=== PATIENT | male | born 1970 | race Caucasian/White ===

== ENCOUNTER 2016-09-12 07:23 | Inpatient (IN) | payer OTHER ==
[2016-09-12 08:00] LABS: Basophils % (Auto) 0.5 % (0.0-1.8); Eosinophils % (Auto) 0.6 % (0.0-4.3); Hematocrit 36.8 % (35.5-45.6); Hemoglobin 12.2 gm/dl (11.8-15.2); Mean Corpuscular HGB Conc 33 % (32-34); Mean Corpuscular Hemoglobin 33 pg (28-32); Mean Corpuscular Volume 100 fl (84-94); Platelet Count 255 K/mm3 (140-440); Red Blood Count 3.68 M/mm3 (3.65-5.03); Red Cell Distribution Width 16.2 % (13.2-15.2); White Blood Count 14.5 K/mm3 (4.5-11.0)
[2016-09-12 08:25] LABS: Blood Urea Nitrogen 15 mg/dL (9-20); Calcium 8.8 mg/dL (8.4-10.2); Carbon Dioxide 21 mmol/L (22-30); Chloride 93.8 mmol/L (98-107); Sodium 130 mmol/L (137-145)
[2016-09-12 08:31] LABS: Glucose 674 mg/dL (75-100)
[2016-09-12 08:37] LABS: Anion Gap 21 mmol/L; Potassium 5.7 mmol/L (3.6-5.0)
[2016-09-12] MEDS ORDERED: D50W (25GM) IV PRN ×3 (08:37→09:46)
[2016-09-12] MEDS ORDERED: MORPHINE IV ONE (08:57)
[2016-09-12] MEDS ORDERED: ZOSYN/NS 4.5GM/100ML 4.5 GM/100 ML VIAL IV ONE (08:58)
--- NOTE | 2016-09-12 08:59 | Emergency Department Report ---
HPI - General Chief Complaint: Skin/Abscess/Foreign Body Time Seen by Provider: 09/12/16 08:36 - HPI HPI: This is a 46-year-old male who presents to the emergency department with a three-day history of progressive worsening left foot pain and suspected infection. This occurred after the patient stepped on a nail about 4 days ago. It is red and warm to touch and he says that the bottom of the foot is whitish yellow with some discharge of pus. He is a diabetic, insulin-dependent , and says he has been compliant with his medications up until this morning. He has been taking ibuprofen for pain without any relief. He also was able to obtain some amoxicillin from a friend and has been taking 1-2 days worth of that antibiotics. He complains of a subjective fever but has not checked his temperature at home. He does not have a primary care doctor and eventually get some of his medications through his [facility]. No recent travel or sick contacts at home. ED Past Medical Hx - Past Medical History Hx Diabetes: Yes - Surgical History Past Surgical History?: Yes Additional Surgical History: abdominal surgery as a child - Social History Smoking Status: Former Smoker Substance Use Type: None - Medications Home Medications: Home Medications Medication Instructions Recorded Confirmed Last Taken Type No Known Home Medications [No 09/12/16 Unknown History Reported Home Medications] ED Review of Systems ROS: Stated complaint: PUNCTURE WOUND TO LEFT FOOT Other details as noted in HPI Comment: All other systems reviewed and negative Constitutional: chills, fever (subjective) Eyes: denies: eye pain, eye discharge, vision change ENT: denies: ear pain, throat pain Respiratory: denies: cough, shortness of breath, wheezing Cardiovascular: denies: chest pain, palpitations Gastrointestinal: denies: abdominal pain, nausea, diarrhea Genitourinary: denies: urgency, dysuria Musculoskeletal: joint swelling, arthralgia Skin: rash, change in color Neurological: denies: headache, weakness, paresthesias Physical Exam - Physical Exam Vital Signs: Vital Signs 09/12/16 09/12/16 09/12/16 07:32 08:48 08:53 Temperature 98.0 F 98.8 F Pulse Rate 107 H 98 H Respiratory 20 15 Rate Blood Pressure 140/95 Blood Pressure 142/77 [Left] O2 Sat by Pulse 100 100 100 Oximetry Physical Exam: GENERAL: The patient is well-developed well-nourished. HEENT: Normocephalic. Atraumatic. Extraocular motions are intact. Patient has moist mucous membranes. Pupils equal reactive to light bilaterally. NECK: Supple. Trachea is midline. CHEST/LUNGS: Clear to auscultation. There is no respiratory distress noted. HEART/CARDIOVASCULAR: Regular. There is no tachycardia. There is no gallop rub or murmur. ABDOMEN: Abdomen is soft, nontender. Patient has normal bowel sounds. There is no abdominal distention. SKIN: There is nonpitting swelling to the distal left lower extremity from just above the ankle through the foot and toes. This area is also erythematous and warm. To the distal plantar portion of the foot, there is some fluctuance concerning for an underlying abscess. NEURO: The patient is awake, alert, and oriented. The patient is cooperative. The patient has no focal neurologic deficits. The patient has normal speech. MUSCULOSKELETAL: There is tenderness to palpation to the left lower extremity from the mid tib-fib distally where the patient appears to have a cellulitis and plantar abscess. Pedal pulses +2 over 4 bilaterally. Cap refill less than 2 seconds. There is no limitation range of motion. ED Course Vital Signs 09/12/16 09/12/16 09/12/16 07:32 08:48 08:53 Temperature 98.0 F 98.8 F Pulse Rate 107 H 98 H Respiratory 20 15 Rate Blood Pressure 140/95 Blood Pressure 142/77 [Left] O2 Sat by Pulse 100 100 100 Oximetry ED Medical Decision Making - Lab Data Result diagrams: 09/12/16 07:49 09/12/16 12:26 - Radiology Data Radiology results: image reviewed interpreted by me: X-ray of the left foot shows some swelling of the soft tissue but no obvious fracture, dislocation or concern for osteomyelitis - Medical Decision Making 46-year-old male presents the emergency department with a three-day history of pain, redness and swelling to the left foot and ankle that appears to be a cellulitis and a plantar abscess. On top of that, the patient has very elevated blood sugar of being an insulin-dependent diabetic. It is most likely secondary to his infection that his diabetes uncontrolled. The blood sugar is close to 700. There is no sign of current acidosis but there is some elevation in the anion gap. The patient will be started on insulin drip. Because the patient allegedly stepped on a nail, he was given a tetanus vaccination. He will be cross covered with vancomycin and Zosyn to include pseudomonas coverage and will be admitted to the ICU secondary to his insulin drip. He has been accepted for admission by the hospitalist, Dr. Cali. - Differential Diagnosis cellulitis, osteomyelitis, DKA, HHNK, abscess Critical Care Time: No Critical care attestation.: If time is entered above; I have spent that time in minutes in the direct care of this critically ill patient, excluding procedure time. ED Disposition Clinical Impression: Cellulitis and abscess of foot, Hyperglycemic hyperosmolar nonketotic coma Disposition: OP ADMITTED IP TO THIS HOSP Is pt being admited?: Yes Condition: Stable Time of Disposition: 14:13
--- NOTE | 2016-09-12 09:10 | Admit Criteria Form ---
Admission Criteria Documentation: CELLULITIS Clinical Indications for Admission to Inpatient Care (Place 'X' for any and all applicable criteria): Admission is indicated for ANY ONE of the following(1)(2)(3)(4)(5): [ ]I. Limb-threatening infection [ X]II. High-risk comorbid condition as indicated by ANY ONE of the following: [ X]a) Uncontrolled diabetes (eg, HbA1c greater than 10% (0.1)) [ ]b) Cirrhosis [ ]c) Neutropenia [ ]d) Asplenia [ ]e) Immunosuppression [ ]f) Symptomatic heart failure [ ]III. Failure of outpatient therapy as indicated by ALL of the following: [ ]a) Progression or no improvement after adequate trial (minimum of 48 hours, with longer period for stable lower extremity infection) [ ]b) Adequate antibiotic regimen as indicated by use of ANY ONE of the following: [ ]i) First-generation cephalosporin (e.g., cephalexin) [ ]ii) Antistaphylococcal penicillin (e.g., dicloxacillin) [ ]iii) Penicillin-allergic patient regimen (clindamycin, extended-spectrum fluoroquinolone, or doxycycline) [ ]iv) Resistant organism (eg, methicillin-resistant Staphylococcus aureus) regimen (6) [ ]c) Outpatient intravenous therapy regimen is not appropriate due to ANY ONE of the following. (7)(8)(9)(10): [ ]i) It was tried and was not successful (eg, progression of infection). [ ]ii) It is not available or cannot be arranged in a clinically appropriate time frame (e.g., the next day). [ ]iii) Clinical presentation (eg, acuity of infection, rapidity of progression, confirmed or suspected bacteremia) is judged to require ALL of the following: [ ]1) Immediate initiation of intravenous therapy ( eg, cannot wait for next day) [ ]2) Intensity of patient monitoring and observation (eg, vital sign measurement, checks for infection progression) that cannot be provided at other than inpatient level of care [ ]IV. Mental status changes [ ]V. Bacteremia [ ]. Hemodynamic instability [ ]VII. Suspected necrotizing soft tissue infection (e.g., gas in tissue)(11)( 12) [ ]VIII. Orbital infection (13)(14) [ ]IX. Associated surgical procedure (e.g., abscess drainage, debridement) not amenable to outpatient, emergency department, or observation care [ ]X. Cutaneous gangrene [ ]XI. High fever (temperature greater than 39.5 degrees C (103.1 degrees F) (oral)) not responsive to outpatient, emergency department, or observation care therapy [ ]XIII. Inpatient admission required rather than observation care (Also use Cellulitis: Observation Care as appropriate) because of ANY ONE of the following : [ ]a) Periorbital or perineal infection that is severe or worsening [ ]b) Severe pain requiring acute inpatient management [ ]c) IV fluid to replace significant ongoing (e.g., for over 24 hours) losses (greater than 3L/m2 per day) [ ]d) Compartment syndrome monitoring (17) [ ]e) Strict or protective (eg, laminar flow) isolation [ ]f) Urgent debridement or skin grafting [ ]g) Bone or joint debridement [ ]h) Immediate inpatient surgery [ ]i) Other condition, treatment or monitoring requiring inpatient admission Extended stay beyond goal length of stay may be needed for (1)(18): [ ]a) Necrotizing soft tissue infection or fasciitis [ ]b) Gram-negative infection [ ]c) Methicillin-resistant Staphylococcal aureus (MRSA) infection [ ]d) Peripheral venous insufficiency with cellulitis [ ]e) Extensive edema [ ]f) Sepsis or continued Hemodynamic instability [ ]g) Continued high fever or mental status change [ ]h) Bacteremia [ ]i) Active serious comorbid conditions ( eg, heart failure, renal insufficiency) The original [email or web address] content created by [email or web address] has been revised. The portions of the content which have been revised are identified through the use of italic text or in bold, and [facility] has neither reviewed nor approved the modified material. All other unmodified content is copyright [facility] Please see references footnoted in the original [facility] [employer] edition 2016 Admission Criteria Met: Yes
[2016-09-12 09:17] LABS: Bilirubin,Urine NEG (Negative); Blood,Urine NEG (Negative); Ketones,Urine NEG (Negative); Leukocyte Esterase,Urine NEG (Negative); Mucus,Urine FEW /HPF; Nitrite,Urine NEG (Negative); Protein,Urine <15 mg/dL mg/dL (Negative); Urobilinogen,Urine < 2.0 mg/dL (<2.0)
[2016-09-12 09:22] LABS: Magnesium 1.8 mg/dL (1.7-2.3); Phosphorous 3.6 mg/dL (2.5-4.5)
[2016-09-12 09:23] LABS: Anion Gap 21 mmol/L; Blood Urea Nitrogen 15 mg/dL (9-20); Calcium 8.6 mg/dL (8.4-10.2); Carbon Dioxide 21 mmol/L (22-30); Chloride 92.7 mmol/L (98-107); Potassium 5.2 mmol/L (3.6-5.0); Sodium 129 mmol/L (137-145)
--- NOTE | 2016-09-12 09:31 | History and Physical Report ---
History of Present Illness Date of examination: 09/12/16 History of present illness: This is a 46-year-old male who presents to the emergency department with a three-day history of progressive worsening left foot pain and suspected infection. This occurred after the patient stepped on a nail about 4 days ago. It is red and warm to touch and he says that the bottom of the foot is whitish yellow with some discharge of pus. He is a diabetic, insulin-dependent , and says he has been compliant with his medications up until this morning. He has been taking ibuprofen for pain without any relief. He also was able to obtain some amoxicillin from a friend and has been taking 1-2 days worth of that antibiotics. He complains of a subjective fever but has not checked his temperature at home. He does not have a primary care doctor and eventually get some of his medications through his [facility]. No recent travel or sick contacts at home. Past History Past Medical History: diabetes Medications and Allergies Allergies Allergy/AdvReac Type Severity Reaction Status Date / Time No Known Allergies Allergy Verified 09/12/16 07:32 Home Medications Medication Instructions Recorded Confirmed Last Taken Type glipiZIDE [Glucotrol] 5 mg PO BID #60 tablet 10/11/13 Unknown Rx Active Meds: Active Medications Dextrose (D50w (25gm)) 0 ml IV PRN PRN PRN Reason: Hypoglycemia Insulin Human Regular 100 (units/ Sodium Chloride) 100 mls @ 5 mls/hr IV TITR JARRED; 5 UNITS/HR PRN Reason: Protocol Tetanus/Diphtheria Toxoids (Tenivac) 0.5 ml IM ONCE.ED ONE Stop: 09/12/16 10:01 Review of Systems Integumentary: redness, foot/leg ulcers Exam - Constitutional Vitals: Temp Pulse Resp BP Pulse Ox 98.8 F 98 H 15 142/77 100 09/12/16 08:53 09/12/16 08:53 09/12/16 08:53 09/12/16 08:53 09/12/16 08:53 General appearance: Present: mild distress - EENT Eyes: Present: PERRL, EOM intact ENT: hearing intact, clear oral mucosa - Neck Neck: Present: supple, normal ROM - Respiratory Respiratory effort: normal Respiratory: bilateral: CTA - Cardiovascular Rhythm: regular Heart Sounds: Present: S1 & S2 - Extremities Extremity abnormal: edema, erythema, pulses diminished, tenderness - Abdominal General gastrointestinal: Present: soft, non-tender, non-distended, normal bowel sounds - Musculoskeletal Musculoskeletal: strength equal bilaterally - Psychiatric Psychiatric: appropriate mood/affect, intact judgment & insight - Neurologic Neurologic: CNII-XII intact, moves all extremities Results - Labs CBC & Chem 7: 09/12/16 07:49 09/12/16 08:51 Labs: Laboratory Last Values WBC 14.5 K/mm3 (4.5-11.0) H 09/12/16 07:49 RBC 3.68 M/mm3 (3.65-5.03) 09/12/16 07:49 Hgb 12.2 gm/dl (11.8-15.2) 09/12/16 07:49 Hct 36.8 % (35.5-45.6) 09/12/16 07:49 MCV 100 fl (84-94) H 09/12/16 07:49 MCH 33 pg (28-32) H 09/12/16 07:49 MCHC 33 % (32-34) 09/12/16 07:49 RDW 16.2 % (13.2-15.2) H 09/12/16 07:49 Plt Count 255 K/mm3 (140-440) 09/12/16 07:49 Lymph % (Auto) 6.7 % (13.4-35.0) L 09/12/16 07:49 [place] % (Auto) 7.6 % (0.0-7.3) H 09/12/16 07:49 Eos % (Auto) 0.6 % (0.0-4.3) 09/12/16 07:49 Baso % (Auto) 0.5 % (0.0-1.8) 09/12/16 07:49 Lymph # 1.0 K/mm3 (1.2-5.4) L 09/12/16 07:49 [place] # 1.1 K/mm3 (0.0-0.8) H 09/12/16 07:49 Eos # 0.1 K/mm3 (0.0-0.4) 09/12/16 07:49 Baso # 0.1 K/mm3 (0.0-0.1) 09/12/16 07:49 Seg Neutrophils % 84.6 % (40.0-70.0) H 09/12/16 07:49 Seg Neutrophils # 12.3 K/mm3 (1.8-7.7) H 09/12/16 07:49 VBG pH 7.381 (7.320-7.420) 09/12/16 07:49 Sodium 129 mmol/L (137-145) L 09/12/16 08:51 Potassium 5.2 mmol/L (3.6-5.0) H 09/12/16 08:51 Chloride 92.7 mmol/L (98-107) L 09/12/16 08:51 Carbon Dioxide 21 mmol/L (22-30) L 09/12/16 08:51 Anion Gap 21 mmol/L 09/12/16 08:51 BUN 15 mg/dL (9-20) 09/12/16 08:51 Creatinine 0.6 mg/dL (0.8-1.5) L 09/12/16 08:51 Estimated GFR > 60 ml/min 09/12/16 08:51 BUN/Creatinine Ratio 25.00 % 09/12/16 08:51 Glucose 674 mg/dL (75-100) H* 09/12/16 07:49 POC Glucose > 500 (70-105) H 09/12/16 07:35 Lactic Acid 2.10 mmol/L (0.7-2.0) H* 09/12/16 07:49 Calcium 8.6 mg/dL (8.4-10.2) 09/12/16 08:51 Phosphorus 3.60 mg/dL (2.5-4.5) 09/12/16 08:51 Magnesium 1.80 mg/dL (1.7-2.3) 09/12/16 08:51 Urine Color Yellow (Yellow) 09/12/16 09:03 Urine Turbidity Clear (Clear) 09/12/16 09:03 Urine pH 6.0 (5.0-7.0) 09/12/16 09:03 Ur Specific [place] 1.028 (1.003-1.030) 09/12/16 09:03 Urine Protein <15 mg/dl mg/dL (Negative) 09/12/16 09:03 Urine Glucose (UA) >=500 mg/dL (Negative) 09/12/16 09:03 Urine Ketones Neg mg/dL (Negative) 09/12/16 09:03 Urine Blood Neg (Negative) 09/12/16 09:03 Urine Nitrite Neg (Negative) 09/12/16 09:03 Urine Bilirubin Neg (Negative) 09/12/16 09:03 Urine Urobilinogen < 2.0 mg/dL (<2.0) 09/12/16 09:03 Ur Leukocyte Esterase Neg (Negative) 09/12/16 09:03 Urine WBC (Auto) 1.0 /HPF (0.0-6.0) 09/12/16 09:03 Urine RBC (Auto) 4.0 /HPF (0.0-6.0) 09/12/16 09:03 U Epithel Cells (Auto) < 1.0 /HPF (0-13.0) 09/12/16 09:03 Urine Mucus Few /HPF 09/12/16 09:03 Assessment and Plan - Patient Problems (1) Cellulitis and abscess of foot Current Visit: Yes Status: Acute Plan to address problem: We will admit to the hospital. Start IV antibiotics. Follow blood cultures. Follow cultures. We'll get infectious disease consult (2) Hyperglycemic hyperosmolar nonketotic coma Current Visit: Yes Status: Acute Plan to address problem: Patient will be admitted to the intensive care unit and started on insulin drip. IV fluid hydration
[2016-09-12 09:35] LABS: Glucose 653 mg/dL (75-100)
[2016-09-12] MEDS ORDERED: ALUM-MAG HYDROX-SIMETH 200-200-20MG/5ML PO PRN (09:46)
[2016-09-12] MEDS ORDERED: DULCOLAX PR PRN (09:46)
[2016-09-12] MEDS ORDERED: NACL 0.9% 1000 ML 1,000 ML IV ONE (09:46)
[2016-09-12] MEDS ORDERED: MILK OF MAGNESIA PO PRN (09:46)
[2016-09-12] MEDS ORDERED: TENIVAC IM ONE (10:00)
[2016-09-12] MEDS ORDERED: LOVENOX SUB-Q SCH (10:00)
[2016-09-12] MEDS ORDERED: NovoLIN R 100 UNITS in NACL 0.9% 99 ML IV SCH ×2 (10:00)
[2016-09-12 10:51] LABS: Anion Gap 21 mmol/L; BUN/Creatinine Ratio 23.33; Blood Urea Nitrogen 14 mg/dL (9-20); Calcium 8.9 mg/dL (8.4-10.2); Carbon Dioxide 21 mmol/L (22-30); Chloride 95.2 mmol/L (98-107); Potassium 4.7 mmol/L (3.6-5.0); Sodium 132 mmol/L (137-145)
[2016-09-12 10:53] LABS: Glucose 596 mg/dL (75-100)
[2016-09-12 10:55] LABS: Magnesium 1.8 mg/dL (1.7-2.3); Phosphorous 3.3 mg/dL (2.5-4.5)
[2016-09-12] MEDS ORDERED: VANCOMYCIN/NS 1 GM/250 ML 1 GM/250 ML BAG IV SCH (11:00)
[2016-09-12] MEDS ORDERED: MORPHINE ONE (11:13)
[2016-09-12] MEDS ORDERED: VANCOMYCIN 1,250 MG in NACL 0.9% 250ML 250 ML IV ONE (12:00)
[2016-09-12] MEDS: LOVENOX SUB-Q SCH (12:57)
[2016-09-12 13:33] LABS: Anion Gap 22 mmol/L; Blood Urea Nitrogen 11 mg/dL (9-20); Calcium 8.5 mg/dL (8.4-10.2); Carbon Dioxide 18 mmol/L (22-30); Chloride 97.6 mmol/L (98-107); Glucose 417 mg/dL (75-100); Potassium 4.1 mmol/L (3.6-5.0); Sodium 133 mmol/L (137-145)
[2016-09-12] MEDS: ZOSYN/NS 4.5GM/100ML 4.5 GM/100 ML VIAL IV SCH ×2 (13:36→22:52)
[2016-09-12] MEDS: NACL 0.9% 1000 ML 1,000 ML IV SCH (14:55)
[2016-09-12] MEDS: D5W/0.45% NACL/KCL 20 MEQ 20 MEQ/1,000 ML BAG IV SCH (16:00)
[2016-09-12 17:16] LABS: Anion Gap 19 mmol/L; Blood Urea Nitrogen 9 mg/dL (9-20); Calcium 8.2 mg/dL (8.4-10.2); Calcium 8.3 mg/dL (8.4-10.2); Carbon Dioxide 19 mmol/L (22-30); Carbon Dioxide 20 mmol/L (22-30); Chloride 100.5 mmol/L (98-107); Chloride 102.5 mmol/L (98-107); Glucose 152 mg/dL (75-100); Glucose 153 mg/dL (75-100); Potassium 3.6 mmol/L (3.6-5.0); Potassium 3.7 mmol/L (3.6-5.0); Sodium 135 mmol/L (137-145); Sodium 138 mmol/L (137-145)
[2016-09-12 17:17] LABS: Anion Gap 18 mmol/L; Anion Gap 19 mmol/L; Blood Urea Nitrogen 9 mg/dL (9-20); Calcium 8.3 mg/dL (8.4-10.2); Carbon Dioxide 21 mmol/L (22-30); Chloride 102.1 mmol/L (98-107); Chloride 102.5 mmol/L (98-107); Glucose 152 mg/dL (75-100); Glucose 154 mg/dL (75-100); Potassium 3.7 mmol/L (3.6-5.0); Sodium 138 mmol/L (137-145)
[2016-09-13] MEDS: VANCOMYCIN/NS 1 GM/250 ML 1 GM/250 ML BAG IV SCH ×2 (00:15→12:30)
[2016-09-13] MEDS: MORPHINE IV PRN ×3 (00:57→14:34)
[2016-09-13] MEDS: ZOFRAN IV PRN ×2 (00:57→06:17)
[2016-09-13] MEDS: D5W/0.45% NACL/KCL 20 MEQ 20 MEQ/1,000 ML BAG IV SCH ×2 (00:59→09:00)
[2016-09-13 01:33] LABS: Anion Gap 19 mmol/L; Blood Urea Nitrogen 8 mg/dL (9-20); Carbon Dioxide 19 mmol/L (22-30); Chloride 99.5 mmol/L (98-107); Glucose 142 mg/dL (75-100); Potassium 3.7 mmol/L (3.6-5.0); Sodium 134 mmol/L (137-145)
[2016-09-13 05:56] LABS: Basophils % (Auto) 0.2 % (0.0-1.8); Eosinophils % (Auto) 1.5 % (0.0-4.3); Hematocrit 35.3 % (35.5-45.6); Hemoglobin 11.4 gm/dl (11.8-15.2); Mean Corpuscular HGB Conc 32 % (32-34); Mean Corpuscular Hemoglobin 33 pg (28-32); Mean Corpuscular Volume 100 fl (84-94); Platelet Count 266 K/mm3 (140-440); Red Blood Count 3.52 M/mm3 (3.65-5.03); White Blood Count 13.1 K/mm3 (4.5-11.0)
[2016-09-13 06:08] LABS: Anion Gap 18 mmol/L; Blood Urea Nitrogen 8 mg/dL (9-20); Carbon Dioxide 18 mmol/L (22-30); Chloride 102.2 mmol/L (98-107); Glucose 147 mg/dL (75-100); Potassium 4.1 mmol/L (3.6-5.0); Sodium 134 mmol/L (137-145)
[2016-09-13] MEDS: ZOSYN/NS 4.5GM/100ML 4.5 GM/100 ML VIAL IV SCH ×3 (06:31→22:35)
[2016-09-13] MEDS: LOVENOX SUB-Q SCH (11:00)
[2016-09-13] MEDS ORDERED: D50W (25GM) IV PRN (11:38)
[2016-09-13] MEDS ORDERED: FLUARIX QUAD 2016-2017(36 MOS+) IM ONE (12:00)
--- NOTE | 2016-09-13 13:42 | Progress Note ---
Assessment and Plan Assessment and plan: This is a 46-year-old male who presents to the emergency department with a three-day history of progressive worsening left foot pain and suspected infection. This occurred after the patient stepped on a nail about 8 days ago. It is red and warm to touch and he says that the bottom of the foot is whitish yellow with some discharge of pus. He is a diabetic, insulin-dependent , and says he has been compliant with his medications up until this morning. He has been taking ibuprofen for pain without any relief. He also was able to obtain some amoxicillin from a friend and has been taking 1-2 days worth of that antibiotics. He complains of a subjective fever but has not checked his temperature at home. He does not have a primary care doctor and eventually get some of his medications through his [facility]. No recent travel or sick contacts at home. - Patient Problems (1) Severe Sepsis secondary to diabetic foot infection, POSSIBLE GNR, continue abx, check repeat lactate, cultures reviewed no growth. (2)Cellulitis and abscess of foot Await x-ray of fluids. Continue IV antibiotics of vancomycin, Zosyn Follow blood cultures. Follow cultures. We'll get infectious disease consult. Obtain wound consult. Possibly will need incision and drainage, unfortunately we do not have podiatry will proceed with orthopedic surgery consult. (2) Hyperglycemic hyperosmolar nonketotic state Blood sugar improved. Transition to long-acting insulin and transferred to the medical surgical unit. 3. Metabolic acidosis: Improving, start patient on bicarbonate replacement. 4. Uncontrolled diabetes mellitus Start patient on sliding scale coverage, also long-acting insulin at nighttime. Accu-Cheks before meals and Daily at bedtime. Patient will need diabetic education prior to discharge. Diabetic diet. 5. DVT/GI prophy 6. Plan of care discussed in detail with patient via nursing staff counselor. History Interval history: Patient seen and examined, in no acute distress. No adverse event reported by nursing staff. Hospitalist Physical - Physical exam Narrative exam: VITAL SIGNS: Reviewed. GENERAL: The patient appeared well nourished and normally developed. Vital signs as documented. HEAD: No signs of head trauma. EYES: Pupils are equal. Extraocular motions intact. EARS: Hearing grossly intact. MOUTH: Oropharynx is normal. NECK: No adenopathy, no JVD. CHEST: Chest with clear breath sounds bilaterally. No wheezes, rales, or rhonchi. CARDIAC: Regular rate and rhythm. S1 and S2, without murmurs, gallops, or rubs. VASCULAR: Left foot Edema. Peripheral pulses normal and equal in all extremities. ABDOMEN: Soft, without detectable tenderness. No sign of distention. No rebound or guarding, and no masses palpated. Bowel Sounds normal. MUSCULOSKELETAL: Good range of motion of all major joints. Extremities without clubbing, cyanosis. left foot edema. NEUROLOGIC EXAM: Alert and oriented x 3. No focal sensory or strength deficits. Speech normal. Follows commands. PSYCHIATRIC: Mood normal. SKIN: Left foot with 2 puncture wound true and true, edema with erythema. Capillary refill less than 2 seconds. - Constitutional Vitals: Temp Pulse Resp BP Pulse Ox 98 F 100 H 14 155/94 100 09/13/16 12:00 09/13/16 12:00 09/13/16 12:00 09/13/16 12:00 09/13/16 12:00 General appearance: Present: mild distress Results - Labs CBC & Chem 7: 09/13/16 04:38 09/13/16 04:31 Labs: Laboratory Last Values WBC 13.1 K/mm3 (4.5-11.0) H 09/13/16 04:38 RBC 3.52 M/mm3 (3.65-5.03) L 09/13/16 04:38 Hgb 11.4 gm/dl (11.8-15.2) L 09/13/16 04:38 Hct 35.3 % (35.5-45.6) L 09/13/16 04:38 MCV 100 fl (84-94) H 09/13/16 04:38 MCH 33 pg (28-32) H 09/13/16 04:38 MCHC 32 % (32-34) 09/13/16 04:38 RDW 16.0 % (13.2-15.2) H 09/13/16 04:38 Plt Count 266 K/mm3 (140-440) 09/13/16 04:38 Lymph % (Auto) 14.2 % (13.4-35.0) 09/13/16 04:38 [place] % (Auto) 9.6 % (0.0-7.3) H 09/13/16 04:38 Eos % (Auto) 1.5 % (0.0-4.3) 09/13/16 04:38 Baso % (Auto) 0.2 % (0.0-1.8) 09/13/16 04:38 Lymph # 1.8 K/mm3 (1.2-5.4) 09/13/16 04:38 [place] # 1.2 K/mm3 (0.0-0.8) H 09/13/16 04:38 Eos # 0.2 K/mm3 (0.0-0.4) 09/13/16 04:38 Baso # 0.0 K/mm3 (0.0-0.1) 09/13/16 04:38 Seg Neutrophils % 74.5 % (40.0-70.0) H 09/13/16 04:38 Seg Neutrophils # 9.7 K/mm3 (1.8-7.7) H 09/13/16 04:38 VBG pH 7.381 (7.320-7.420) 09/12/16 07:49 Sodium 134 mmol/L (137-145) L 09/13/16 04:31 Potassium 4.1 mmol/L (3.6-5.0) 09/13/16 04:31 Chloride 102.2 mmol/L (98-107) 09/13/16 04:31 Carbon Dioxide 18 mmol/L (22-30) L 09/13/16 04:31 Anion Gap 18 mmol/L 09/13/16 04:31 BUN 8 mg/dL (9-20) L 09/13/16 04:31 Creatinine 0.5 mg/dL (0.8-1.5) L 09/13/16 04:31 Estimated GFR > 60 ml/min 09/13/16 04:31 BUN/Creatinine Ratio 16.00 % 09/13/16 04:31 Glucose 147 mg/dL (75-100) H 09/13/16 04:31 POC Glucose 167 (70-105) H 09/13/16 09:56 Hemoglobin A1c 15.1 % (4-6) H 09/12/16 10:18 Lactic Acid 2.10 mmol/L (0.7-2.0) H* 09/12/16 07:49 Calcium 8.0 mg/dL (8.4-10.2) L 09/13/16 04:31 Phosphorus 3.30 mg/dL (2.5-4.5) 09/12/16 10:18 Magnesium 1.80 mg/dL (1.7-2.3) 09/12/16 10:18 Triglycerides 146 mg/dL (2-149) 09/12/16 10:18 Cholesterol 124 mg/dL (50-199) 09/12/16 10:18 LDL Cholesterol Direct 62 mg/dL (50-130) 09/12/16 10:18 HDL Cholesterol 33 mg/dL (40-59) L 09/12/16 10:18 Cholesterol/HDL Ratio 3.75 % 09/12/16 10:18 Urine Color Yellow (Yellow) 09/12/16 09:03 Urine Turbidity Clear (Clear) 09/12/16 09:03 Urine pH 6.0 (5.0-7.0) 09/12/16 09:03 Ur Specific [place] 1.028 (1.003-1.030) 09/12/16 09:03 Urine Protein <15 mg/dl mg/dL (Negative) 09/12/16 09:03 Urine Glucose (UA) >=500 mg/dL (Negative) 09/12/16 09:03 Urine Ketones Neg mg/dL (Negative) 09/12/16 09:03 Urine Blood Neg (Negative) 09/12/16 09:03 Urine Nitrite Neg (Negative) 09/12/16 09:03 Urine Bilirubin Neg (Negative) 09/12/16 09:03 Urine Urobilinogen < 2.0 mg/dL (<2.0) 09/12/16 09:03 Ur Leukocyte Esterase Neg (Negative) 09/12/16 09:03 Urine WBC (Auto) 1.0 /HPF (0.0-6.0) 09/12/16 09:03 Urine RBC (Auto) 4.0 /HPF (0.0-6.0) 09/12/16 09:03 U Epithel Cells (Auto) < 1.0 /HPF (0-13.0) 09/12/16 09:03 Urine Mucus Few /HPF 09/12/16 09:03
[2016-09-13] MEDS: NACL 0.9% 1000 ML 1,000 ML IV SCH ×2 (14:21→22:35)
[2016-09-13] MEDS ORDERED: VANCOMYCIN PHARMACY TO DOSE IV SCH (14:37)
[2016-09-13 14:44] LABS: Anion Gap 19 mmol/L; Blood Urea Nitrogen 8 mg/dL (9-20); Calcium 8.2 mg/dL (8.4-10.2); Carbon Dioxide 18 mmol/L (22-30); Glucose 305 mg/dL (75-100); Potassium 4.3 mmol/L (3.6-5.0); Sodium 134 mmol/L (137-145)
[2016-09-13] MEDS: NOVOLOG SUB-Q SCH ×2 (18:12→22:34)
[2016-09-13] MEDS ORDERED: LEVEMIR SUB-Q SCH (22:00)
[2016-09-14] MEDS: VANCOMYCIN/NS 1 GM/250 ML 1 GM/250 ML BAG IV SCH ×3 (01:19→16:53)
[2016-09-14] MEDS: ZOSYN/NS 4.5GM/100ML 4.5 GM/100 ML VIAL IV SCH ×3 (05:37→22:15)
[2016-09-14] MEDS: MORPHINE IV PRN ×2 (05:39→16:54)
[2016-09-14 05:48] LABS: Hematocrit 32.3 % (35.5-45.6); Hemoglobin 11.1 gm/dl (11.8-15.2); Mean Corpuscular HGB Conc 34 % (32-34); Mean Corpuscular Hemoglobin 34 pg (28-32); Mean Corpuscular Volume 98 fl (84-94); Platelet Count 282 K/mm3 (140-440); Red Blood Count 3.29 M/mm3 (3.65-5.03); Red Cell Distribution Width 15.4 % (13.2-15.2); White Blood Count 10.9 K/mm3 (4.5-11.0)
[2016-09-14 06:03] LABS: Anion Gap 17 mmol/L; Blood Urea Nitrogen 12 mg/dL (9-20); Calcium 7.8 mg/dL (8.4-10.2); Carbon Dioxide 21 mmol/L (22-30); Chloride 98.6 mmol/L (98-107); Glucose 306 mg/dL (75-100); Potassium 3.8 mmol/L (3.6-5.0); Sodium 133 mmol/L (137-145)
--- NOTE | 2016-09-14 08:15 | Progress Note ---
Assessment and Plan Assessment and plan: This is a 46-year-old male who presents to the emergency department with a three-day history of progressive worsening left foot pain and suspected infection. This occurred after the patient stepped on a nail about 8 days ago. It is red and warm to touch and he says that the bottom of the foot is whitish yellow with some discharge of pus. He is a diabetic, insulin-dependent , and says he has been compliant with his medications up until this morning. He has been taking ibuprofen for pain without any relief. He also was able to obtain some amoxicillin from a friend and has been taking 1-2 days worth of that antibiotics. He complains of a subjective fever but has not checked his temperature at home. He does not have a primary care doctor and eventually get some of his medications through his [facility]. No recent travel or sick contacts at home. - Patient Problems (1) Severe Sepsis now afebrile secondary to diabetic foot infection, POSSIBLE GNR, continue abx , repeat lactate is normal, cultures reviewed no growth. (2)Cellulitis and abscess of foot Await x-ray of fluids. Continue IV antibiotics of vancomycin, Zosyn Follow blood cultures. Follow cultures. We'll get infectious disease consult. Obtain wound consult. Possibly will need incision and drainage, unfortunately we do not have podiatry will proceed with orthopedic surgery consult. Awaiting imaging of the foot. (3) Hyperglycemic hyperosmolar nonketotic state Blood sugar improved. Patient states he has not taken insulin for a while due to lack of funds. But was only on Insulin. Will start on NPH 70/30 at 18 units BID with sliding scale. Needs diabetic education, will obtain NUTRITION CONSULT. I have educated patient on need to be complaint with medications, including 4. Metabolic acidosis: Improving, 5. Uncontrolled diabetes mellitus Start patient on sliding scale coverage, also long-acting insulin at nighttime. Accu-Cheks before meals and Daily at bedtime. Patient will need diabetic education prior to discharge. Diabetic diet. will switch to NPH 70/30 NOTED ABOVE, ALSO WILL ADD LOW DOSE ACEI FOR RENAL PROTECTION. I have advised patient to have a repeat renal function test in a week from discharge, due to ACEI addition. also yearly podiatry and opthalmology exams. 5. DVT/GI prophy 7. Plan of care discussed in detail with patient via nursing staff assistant. History Interval history: Patient seen and examined, in no acute distress. He reports bullae formation in the top of his foot. Denies any fever No adverse event reported by nursing staff. Hospitalist Physical - Physical exam Narrative exam: VITAL SIGNS: Reviewed. GENERAL: The patient appeared well nourished and normally developed. Vital signs as documented. HEAD: No signs of head trauma. EYES: Pupils are equal. Extraocular motions intact. EARS: Hearing grossly intact. MOUTH: Oropharynx is normal. NECK: No adenopathy, no JVD. CHEST: Chest with clear breath sounds bilaterally. No wheezes, rales, or rhonchi. CARDIAC: Regular rate and rhythm. S1 and S2, without murmurs, gallops, or rubs. VASCULAR: Left foot Edema. Peripheral pulses normal and equal in all extremities. ABDOMEN: Soft, without detectable tenderness. No sign of distention. No rebound or guarding, and no masses palpated. Bowel Sounds normal. MUSCULOSKELETAL: Good range of motion of all major joints. Extremities without clubbing, cyanosis. left foot edema. NEUROLOGIC EXAM: Alert and oriented x 3. No focal sensory or strength deficits. Speech normal. Follows commands. PSYCHIATRIC: Mood normal. SKIN: Left foot with 2 puncture wound true and true, edema with erythema. Edema and subcutaneous blister formation on the dorsum of the foot.. - Constitutional Vitals: Temp Pulse Resp BP Pulse Ox 99 F 84 20 162/90 98 09/13/16 22:43 09/14/16 00:00 09/14/16 05:39 09/13/16 22:43 09/14/16 00:00 General appearance: Present: mild distress Results - Labs CBC & Chem 7: 09/14/16 04:34 09/14/16 04:34 Labs: Laboratory Last Values WBC 10.9 K/mm3 (4.5-11.0) 09/14/16 04:34 RBC 3.29 M/mm3 (3.65-5.03) L 09/14/16 04:34 Hgb 11.1 gm/dl (11.8-15.2) L 09/14/16 04:34 Hct 32.3 % (35.5-45.6) L 09/14/16 04:34 MCV 98 fl (84-94) H 09/14/16 04:34 MCH 34 pg (28-32) H 09/14/16 04:34 MCHC 34 % (32-34) 09/14/16 04:34 RDW 15.4 % (13.2-15.2) H 09/14/16 04:34 Plt Count 282 K/mm3 (140-440) 09/14/16 04:34 Lymph % (Auto) 14.2 % (13.4-35.0) 09/13/16 04:38 Boyle % (Auto) 9.6 % (0.0-7.3) H 09/13/16 04:38 Eos % (Auto) 1.5 % (0.0-4.3) 09/13/16 04:38 Baso % (Auto) 0.2 % (0.0-1.8) 09/13/16 04:38 Lymph # 1.8 K/mm3 (1.2-5.4) 09/13/16 04:38 Boyle # 1.2 K/mm3 (0.0-0.8) H 09/13/16 04:38 Eos # 0.2 K/mm3 (0.0-0.4) 09/13/16 04:38 Baso # 0.0 K/mm3 (0.0-0.1) 09/13/16 04:38 Seg Neutrophils % 74.5 % (40.0-70.0) H 09/13/16 04:38 Seg Neutrophils # 9.7 K/mm3 (1.8-7.7) H 09/13/16 04:38 VBG pH 7.381 (7.320-7.420) 09/12/16 07:49 Sodium 133 mmol/L (137-145) L 09/14/16 04:34 Potassium 3.8 mmol/L (3.6-5.0) 09/14/16 04:34 Chloride 98.6 mmol/L (98-107) 09/14/16 04:34 Carbon Dioxide 21 mmol/L (22-30) L 09/14/16 04:34 Anion Gap 17 mmol/L 09/14/16 04:34 BUN 12 mg/dL (9-20) 09/14/16 04:34 Creatinine 0.5 mg/dL (0.8-1.5) L 09/14/16 04:34 Estimated GFR > 60 ml/min 09/14/16 04:34 BUN/Creatinine Ratio 24.00 % 09/14/16 04:34 Glucose 306 mg/dL (75-100) H 09/14/16 04:34 POC Glucose 350 (70-105) H 09/14/16 06:19 Hemoglobin A1c 15.1 % (4-6) H 09/12/16 10:18 Lactic Acid 1.50 mmol/L (0.7-2.0) 09/13/16 14:38 Calcium 7.8 mg/dL (8.4-10.2) L 09/14/16 04:34 Phosphorus 3.30 mg/dL (2.5-4.5) 09/12/16 10:18 Magnesium 1.80 mg/dL (1.7-2.3) 09/12/16 10:18 Triglycerides 146 mg/dL (2-149) 09/12/16 10:18 Cholesterol 124 mg/dL (50-199) 09/12/16 10:18 LDL Cholesterol Direct 62 mg/dL (50-130) 09/12/16 10:18 HDL Cholesterol 33 mg/dL (40-59) L 09/12/16 10:18 Cholesterol/HDL Ratio 3.75 % 09/12/16 10:18 Urine Color Yellow (Yellow) 09/12/16 09:03 Urine Turbidity Clear (Clear) 09/12/16 09:03 Urine pH 6.0 (5.0-7.0) 09/12/16 09:03 Ur Specific [place] 1.028 (1.003-1.030) 09/12/16 09:03 Urine Protein <15 mg/dl mg/dL (Negative) 09/12/16 09:03 Urine Glucose (UA) >=500 mg/dL (Negative) 09/12/16 09:03 Urine Ketones Neg mg/dL (Negative) 09/12/16 09:03 Urine Blood Neg (Negative) 09/12/16 09:03 Urine Nitrite Neg (Negative) 09/12/16 09:03 Urine Bilirubin Neg (Negative) 09/12/16 09:03 Urine Urobilinogen < 2.0 mg/dL (<2.0) 09/12/16 09:03 Ur Leukocyte Esterase Neg (Negative) 09/12/16 09:03 Urine WBC (Auto) 1.0 /HPF (0.0-6.0) 09/12/16 09:03 Urine RBC (Auto) 4.0 /HPF (0.0-6.0) 09/12/16 09:03 U Epithel Cells (Auto) < 1.0 /HPF (0-13.0) 09/12/16 09:03 Urine Mucus Few /HPF 09/12/16 09:03
[2016-09-14] MEDS: NOVOLOG SUB-Q SCH ×4 (08:32→22:24)
[2016-09-14] MEDS: ZESTRIL PO SCH (09:50)
[2016-09-14] MEDS: LOVENOX SUB-Q SCH (09:50)
[2016-09-14] MEDS: NACL 0.9% 1000 ML 1,000 ML IV SCH (16:51)
[2016-09-15] MEDS: VANCOMYCIN/NS 1 GM/250 ML 1 GM/250 ML BAG IV SCH ×3 (00:45→17:31)
[2016-09-15] MEDS: ZOSYN/NS 4.5GM/100ML 4.5 GM/100 ML VIAL IV SCH ×3 (06:38→22:22)
[2016-09-15 08:09] LABS: Hematocrit 32.3 % (35.5-45.6); Mean Corpuscular HGB Conc 34 % (32-34); Mean Corpuscular Hemoglobin 33 pg (28-32); Mean Corpuscular Volume 98 fl (84-94); Platelet Count 299 K/mm3 (140-440); Red Blood Count 3.31 M/mm3 (3.65-5.03); Red Cell Distribution Width 15.5 % (13.2-15.2); White Blood Count 11.2 K/mm3 (4.5-11.0)
[2016-09-15 08:18] LABS: Anion Gap 19 mmol/L; Blood Urea Nitrogen 8 mg/dL (9-20); Calcium 8.1 mg/dL (8.4-10.2); Carbon Dioxide 22 mmol/L (22-30); Chloride 101.5 mmol/L (98-107); Glucose 103 mg/dL (75-100); Potassium 3.3 mmol/L (3.6-5.0); Sodium 139 mmol/L (137-145)
--- NOTE | 2016-09-15 09:20 | Progress Note ---
Assessment and Plan Assessment and plan: This is a 46-year-old male who presents to the emergency department with a three-day history of progressive worsening left foot pain and suspected infection. This occurred after the patient stepped on a nail about 8 days ago. It is red and warm to touch and he says that the bottom of the foot is whitish yellow with some discharge of pus. He is a diabetic, insulin-dependent , and says he has been compliant with his medications up until this morning. He has been taking ibuprofen for pain without any relief. He also was able to obtain some amoxicillin from a friend and has been taking 1-2 days worth of that antibiotics. He complains of a subjective fever but has not checked his temperature at home. He does not have a primary care doctor and eventually get some of his medications through his [facility]. No recent travel or sick contacts at home. - Patient Problems Severe Sepsis now afebrile secondary to diabetic foot infection, , continue abx, repeat lactate is normal, cultures reviewed no growth. Cellulitis and abscess of foot xray of left foot shows possible punctate foreign body, cw IV abx, ID input appreciated, ortho input appreciated, to OR tomorrow morning, await surgical cultures. \ Hyperglycemic hyperosmolar nonketotic state Blood sugar improved. Patient states he has not taken insulin for a while due to lack of funds. But was only on Insulin. Will start on NPH 70/30 at 18 units BID with sliding scale. Needs diabetic education, will obtain NUTRITION CONSULT. I have educated patient on need to be complaint with medications, including . Metabolic acidosis: resolved with rx of HHNK . Uncontrolled diabetes mellitus Start patient on sliding scale coverage, also long-acting insulin at nighttime. Accu-Cheks before meals and Daily at bedtime. Patient will need diabetic education prior to discharge. Diabetic diet. will switch to NPH 70/30 NOTED ABOVE, ALSO WILL ADD LOW DOSE ACEI FOR RENAL PROTECTION. I have advised patient to have a repeat renal function test in a week from discharge, due to ACEI addition. also yearly podiatry and opthalmology exams. Hypokalemia repleted . Plan of care discussed in detail with patient via public health staff nurse. History Interval history: left foot pain is improved, achy in nature, /, fevers have now resolved, foot is still red and swollen Hospitalist Physical - Physical exam Narrative exam: VITAL SIGNS: Reviewed. GENERAL: The patient appeared well nourished and normally developed. Vital signs as documented. HEAD: No signs of head trauma. EYES: Pupils are equal. Extraocular motions intact. EARS: Hearing grossly intact. MOUTH: Oropharynx is normal. NECK: No adenopathy, no JVD. CHEST: Chest with clear breath sounds bilaterally. No wheezes, rales, or rhonchi. CARDIAC: Regular rate and rhythm. S1 and S2, without murmurs, gallops, or rubs. VASCULAR: Left foot Edema. Peripheral pulses normal and equal in all extremities. ABDOMEN: Soft, without detectable tenderness. No sign of distention. No rebound or guarding, and no masses palpated. Bowel Sounds normal. MUSCULOSKELETAL: Good range of motion of all major joints. Extremities without clubbing, cyanosis. left foot edema. NEUROLOGIC EXAM: Alert and oriented x 3. No focal sensory or strength deficits. Speech normal. Follows commands. PSYCHIATRIC: Mood normal. SKIN: left foot is swollen and erythematous, purlent drainage between 1st and 2nd toe, tender, no surrounding induration - Constitutional Vitals: Temp Pulse Resp BP Pulse Ox 98.1 F 69 15 138/81 98 09/15/16 07:15 09/15/16 07:15 09/15/16 07:15 09/15/16 07:15 09/15/16 07:15 General appearance: Present: mild distress Results - Labs CBC & Chem 7: 09/15/16 07:40 09/15/16 07:40 Labs: Laboratory Last Values WBC 11.2 K/mm3 (4.5-11.0) H 09/15/16 07:40 RBC 3.31 M/mm3 (3.65-5.03) L 09/15/16 07:40 Hgb 11.0 gm/dl (11.8-15.2) L 09/15/16 07:40 Hct 32.3 % (35.5-45.6) L 09/15/16 07:40 MCV 98 fl (84-94) H 09/15/16 07:40 MCH 33 pg (28-32) H 09/15/16 07:40 MCHC 34 % (32-34) 09/15/16 07:40 RDW 15.5 % (13.2-15.2) H 09/15/16 07:40 Plt Count 299 K/mm3 (140-440) 09/15/16 07:40 Lymph % (Auto) 14.2 % (13.4-35.0) 09/13/16 04:38 Terrell % (Auto) 9.6 % (0.0-7.3) H 09/13/16 04:38 Eos % (Auto) 1.5 % (0.0-4.3) 09/13/16 04:38 Baso % (Auto) 0.2 % (0.0-1.8) 09/13/16 04:38 Lymph # 1.8 K/mm3 (1.2-5.4) 09/13/16 04:38 Terrell # 1.2 K/mm3 (0.0-0.8) H 09/13/16 04:38 Eos # 0.2 K/mm3 (0.0-0.4) 09/13/16 04:38 Baso # 0.0 K/mm3 (0.0-0.1) 09/13/16 04:38 Seg Neutrophils % 74.5 % (40.0-70.0) H 09/13/16 04:38 Seg Neutrophils # 9.7 K/mm3 (1.8-7.7) H 09/13/16 04:38 VBG pH 7.381 (7.320-7.420) 09/12/16 07:49 Sodium 139 mmol/L (137-145) 09/15/16 07:40 Potassium 3.3 mmol/L (3.6-5.0) L 09/15/16 07:40 Chloride 101.5 mmol/L (98-107) 09/15/16 07:40 Carbon Dioxide 22 mmol/L (22-30) 09/15/16 07:40 Anion Gap 19 mmol/L 09/15/16 07:40 BUN 8 mg/dL (9-20) L 09/15/16 07:40 Creatinine 0.5 mg/dL (0.8-1.5) L 09/15/16 07:40 Estimated GFR > 60 ml/min 09/15/16 07:40 BUN/Creatinine Ratio 16.00 % 09/15/16 07:40 Glucose 103 mg/dL (75-100) H 09/15/16 07:40 POC Glucose 128 (70-105) H 09/15/16 06:17 Hemoglobin A1c 15.1 % (4-6) H 09/12/16 10:18 Lactic Acid 1.50 mmol/L (0.7-2.0) 09/13/16 14:38 Calcium 8.1 mg/dL (8.4-10.2) L 09/15/16 07:40 Phosphorus 3.30 mg/dL (2.5-4.5) 09/12/16 10:18 Magnesium 1.80 mg/dL (1.7-2.3) 09/12/16 10:18 Triglycerides 146 mg/dL (2-149) 09/12/16 10:18 Cholesterol 124 mg/dL (50-199) 09/12/16 10:18 LDL Cholesterol Direct 62 mg/dL (50-130) 09/12/16 10:18 HDL Cholesterol 33 mg/dL (40-59) L 09/12/16 10:18 Cholesterol/HDL Ratio 3.75 % 09/12/16 10:18 Urine Color Yellow (Yellow) 09/12/16 09:03 Urine Turbidity Clear (Clear) 09/12/16 09:03 Urine pH 6.0 (5.0-7.0) 09/12/16 09:03 Ur Specific [place]ander 1.028 (1.003-1.030) 09/12/16 09:03 Urine Protein <15 mg/dl mg/dL (Negative) 09/12/16 09:03 Urine Glucose (UA) >=500 mg/dL (Negative) 09/12/16 09:03 Urine Ketones Neg mg/dL (Negative) 09/12/16 09:03 Urine Blood Neg (Negative) 09/12/16 09:03 Urine Nitrite Neg (Negative) 09/12/16 09:03 Urine Bilirubin Neg (Negative) 09/12/16 09:03 Urine Urobilinogen < 2.0 mg/dL (<2.0) 09/12/16 09:03 Ur Leukocyte Esterase Neg (Negative) 09/12/16 09:03 Urine WBC (Auto) 1.0 /HPF (0.0-6.0) 09/12/16 09:03 Urine RBC (Auto) 4.0 /HPF (0.0-6.0) 09/12/16 09:03 U Epithel Cells (Auto) < 1.0 /HPF (0-13.0) 09/12/16 09:03 Urine Mucus Few /HPF 09/12/16 09:03 Vancomycin Trough 4.5 ug/mL (5.0-20.0) L 09/14/16 11:06
[2016-09-15] MEDS: ZESTRIL PO SCH (09:41)
[2016-09-15] MEDS ORDERED: K-DUR PO ONE (09:42)
[2016-09-15] MEDS: LOVENOX SUB-Q SCH (09:42)
[2016-09-15] MEDS: NOVOLOG SUB-Q SCH ×4 (09:42→22:26)
--- NOTE | 2016-09-15 09:50 | XRay Report ---
LEFT FOOT, 2 VIEWS History: Injury to left foot, foreign body. Findings: This examination is just presented to me for interpretation. There is diffuse soft tissue swelling of the distal foot. No acute osseous injury or joint pathology is identified. There are diffuse vascular calcifications suggesting diabetes or peripheral vascular disease. A punctate radiodensity is identified in the plantar soft tissues just beneath the skin on the lateral view only. This appears to be in the vicinity of the first or second toe. This may represent a tiny foreign body. Please correlate with the patient and image. Impression: Soft tissue swelling of the distal foot. Questionable punctate soft tissue foreign body as described above. No acute bony findings.
--- NOTE | 2016-09-15 10:58 | Consultation ---
History of Present Illness - Reason for Consult Consult date: 09/15/16 - History of Present Illness Mr. Nascimento is a 46-year-old man with known DM2 who presented for evaluation of his left foot after stepping accidentally on a nail 2 weeks ago. He says it bled "mucho" and developed swelling, redness, pain with chills and fever over several days. Plain film imaging showed a possible retained foreign body. There was seropurulent drainage from the puncture site. He is empirically on Vancomycin and Zosyn. ID is consulted for further antibiotic management. Past History Past Medical History: diabetes (uncontrolled) Medications and Allergies Allergies Allergy/AdvReac Type Severity Reaction Status Date / Time No Known Allergies Allergy Verified 09/12/16 07:32 Home Medications Medication Instructions Recorded Confirmed Last Taken Type No Known Home Medications [No 09/12/16 09/12/16 Unknown History Reported Home Medications] Active Meds: Active Medications Al Hydrox/Mg Hydrox/Simethicone (Alum-Mag Hydrox-Simeth 098-664-69ht/5ml) 30 ml PO Q4H PRN PRN Reason: Indigestion Bisacodyl (Dulcolax) 10 mg [place] QDAY PRN PRN Reason: constipation unrelieved by MOM Dextrose (D50w (25gm)) 0 ml IV PRN PRN PRN Reason: Hypoglycemia Dextrose (D50w (25gm)) 50 ml IV PRN PRN PRN Reason: Hypoglycemia Enoxaparin Sodium (Lovenox) 40 mg SUB-Q QDAY@1000 [facility] Last Admin: 09/15/16 09:42 Dose: 40 mg Sodium Chloride (Nacl 0.9% 1000 Ml) 1,000 mls @ 150 mls/hr IV DIRECT [facility] Last Admin: 09/14/16 16:51 Dose: 150 mls/hr Piperacillin Sod/Tazobactam Sod (Zosyn/Ns 4.5gm/100ml) 4.5 gm in 100 mls @ 200 mls/hr IV Q8HR [facility] PRN Reason: Protocol Last Admin: 09/15/16 06:38 Dose: 200 mls/hr Vancomycin HCl (Vancomycin/Ns 1 Gm/250 Ml) 1 gm in 250 mls @ 166.667 mls/hr IV Q8H [facility] Last Admin: 09/15/16 09:41 Dose: 166.667 mls/hr Insulin Aspart (Novolog) 0 units SUB-Q ACHS [facility] PRN Reason: Protocol Last Admin: 09/15/16 09:42 Dose: Not Given Insulin Human Isoph/Insulin Regular (Novolin 70/30) 18 unit SUB-Q BIDDIAB [facility] Last Admin: 09/15/16 09:42 Dose: 18 unit Lisinopril (Zestril) 5 mg PO QDAY [facility] Last Admin: 09/15/16 09:41 Dose: 5 mg Magnesium Hydroxide (Milk Of Magnesia) 30 ml PO Q4H PRN PRN Reason: Constipation Morphine Sulfate (Morphine) 2 mg IV Q4H PRN PRN Reason: Pain, Moderate (4-6) Last Admin: 09/14/16 16:54 Dose: 2 mg Ondansetron HCl (Zofran) 4 mg IV Q8H PRN PRN Reason: N/V unrelieved by Reglan Last Admin: 09/13/16 06:17 Dose: 4 mg Vancomycin HCl (Vancomycin Pharmacy To Dose) 1 each IV PKCONSULT [facility] PRN Reason: Protocol Review of Systems All systems: negative Constitutional: fever, chills Cardiovascular: no chest pain Respiratory: no cough Gastrointestinal: no nausea, no vomiting, no diarrhea Integumentary: no rash, no pruritis Physical Examination - Constitutional Vitals: Vital Signs Temp Pulse Resp BP Pulse Ox 98.1 F 69 15 138/81 98 09/15/16 07:15 09/15/16 07:15 09/15/16 07:15 09/15/16 07:15 09/15/16 07:15 Temperature -Last 24 Hours Temperature 98.1 F Temperature 99.7 F Temperature 99.2 F General appearance: Present: no acute distress (eating lunch) - Respiratory Respiratory effort: normal Respiratory: bilateral: CTA - Cardiovascular Rhythm: regular - Extremities Extremity abnormal: other (left foot edema with open laceration/ puncture wound in webspace between 1st and 2nd toes, purulent output, dorsum of foot erythematous with slightly increased warmth, no crepitus, DP pulse is normal) - Integumentary Integumentary: Absent: rash - Psychiatric Psychiatric: appropriate mood/affect Results - Labs CBC & Chem 7: 09/15/16 07:40 09/15/16 07:40 Labs: Abnormal lab results 09/14/16 09/14/16 09/14/16 Range/Units 11:06 11:40 16:31 WBC (4.5-11.0) K/mm3 RBC (3.65-5.03) M/mm3 Hgb (11.8-15.2) gm/dl Hct (35.5-45.6) % MCV (84-94) fl MCH (28-32) pg RDW (13.2-15.2) % Potassium (3.6-5.0) mmol/L BUN (9-20) mg/dL Creatinine (0.8-1.5) mg/dL Glucose (75-100) mg/dL POC Glucose 374 H 154 H (70-105) Calcium (8.4-10.2) mg/dL Vancomycin Trough 4.5 L (5.0-20.0) ug/mL 09/14/16 09/15/16 09/15/16 Range/Units 21:29 06:17 07:40 WBC 11.2 H (4.5-11.0) K/mm3 RBC 3.31 L (3.65-5.03) M/mm3 Hgb 11.0 L (11.8-15.2) gm/dl Hct 32.3 L (35.5-45.6) % MCV 98 H (84-94) fl MCH 33 H (28-32) pg RDW 15.5 H (13.2-15.2) % Potassium (3.6-5.0) mmol/L BUN (9-20) mg/dL Creatinine (0.8-1.5) mg/dL Glucose (75-100) mg/dL POC Glucose 173 H 128 H (70-105) Calcium (8.4-10.2) mg/dL Vancomycin Trough (5.0-20.0) ug/mL 09/15/16 Range/Units 07:40 WBC (4.5-11.0) K/mm3 RBC (3.65-5.03) M/mm3 Hgb (11.8-15.2) gm/dl Hct (35.5-45.6) % MCV (84-94) fl MCH (28-32) pg RDW (13.2-15.2) % Potassium 3.3 L (3.6-5.0) mmol/L BUN 8 L (9-20) mg/dL Creatinine 0.5 L (0.8-1.5) mg/dL Glucose 103 H (75-100) mg/dL POC Glucose (70-105) Calcium 8.1 L (8.4-10.2) mg/dL Vancomycin Trough (5.0-20.0) ug/mL Microbiology 09/12/16 07:49 Peripheral/Venous Blood Culture - Preliminary NO GROWTH AFTER 72 HOURS 09/12/16 08:51 Peripheral/Venous Blood Culture - Preliminary NO GROWTH AFTER 48 HOURS Assessment and Plan - Patient Problems (1) Cellulitis and abscess of foot Current Visit: Yes Status: Acute Plan to address problem: 1. Culture drainage from foot. 2. Continue empiric antimicrobials. Appreciate PK assistance with Vancomycin dosing. Recent trough subtherapeutic. 3. Consider MRI left foot +/- surgical assessment to retrieve foreign body.
[2016-09-15] MEDS: MORPHINE IV PRN (11:53)
[2016-09-15] MEDS: NACL 0.9% 1000 ML 1,000 ML IV SCH (14:05)
--- NOTE | 2016-09-15 14:20 | Consultation ---
History of Present Illness - HPI Consult date: 09/15/16 Consult reason: joint pain History of present illness: 46-year-old male who complains of pain swelling and drainage from the left forefoot patient states he stepped on a nail 1 week prior to presenting to our emergency room. Patient has a history of diabetes for several years. Asked to evaluate need for debridement and irrigation left foot Past History Past Medical History: diabetes (uncontrolled) Medications and Allergies Allergies Allergy/AdvReac Type Severity Reaction Status Date / Time No Known Allergies Allergy Verified 09/12/16 07:32 Home Medications Medication Instructions Recorded Confirmed Last Taken Type No Known Home Medications [No 09/12/16 09/12/16 Unknown History Reported Home Medications] Active Meds: Active Medications Al Hydrox/Mg Hydrox/Simethicone (Alum-Mag Hydrox-Simeth [id number]/5ml) 30 ml PO Q4H PRN PRN Reason: Indigestion Bisacodyl (Dulcolax) 10 mg [place] QDAY PRN PRN Reason: constipation unrelieved by MOM Dextrose (D50w (25gm)) 0 ml IV PRN PRN PRN Reason: Hypoglycemia Dextrose (D50w (25gm)) 50 ml IV PRN PRN PRN Reason: Hypoglycemia Enoxaparin Sodium (Lovenox) 40 mg SUB-Q QDAY@1000 [facility] Last Admin: 09/15/16 09:42 Dose: 40 mg Sodium Chloride (Nacl 0.9% 1000 Ml) 1,000 mls @ 150 mls/hr IV DIRECT [facility] Last Admin: 09/15/16 14:05 Dose: 150 mls/hr Piperacillin Sod/Tazobactam Sod (Zosyn/Ns 4.5gm/100ml) 4.5 gm in 100 mls @ 200 mls/hr IV Q8HR [facility] PRN Reason: Protocol Last Admin: 09/15/16 14:04 Dose: 200 mls/hr Vancomycin HCl (Vancomycin/Ns 1 Gm/250 Ml) 1 gm in 250 mls @ 166.667 mls/hr IV Q8H [facility] Last Admin: 09/15/16 09:41 Dose: 166.667 mls/hr Insulin Aspart (Novolog) 0 units SUB-Q ACHS [facility] PRN Reason: Protocol Last Admin: 09/15/16 14:06 Dose: 8 units Insulin Human Isoph/Insulin Regular (Novolin 70/30) 18 unit SUB-Q BIDDIAB [facility] Last Admin: 09/15/16 09:42 Dose: 18 unit Lisinopril (Zestril) 5 mg PO QDAY [facility] Last Admin: 09/15/16 09:41 Dose: 5 mg Magnesium Hydroxide (Milk Of Magnesia) 30 ml PO Q4H PRN PRN Reason: Constipation Morphine Sulfate (Morphine) 2 mg IV Q4H PRN PRN Reason: Pain, Moderate (4-6) Last Admin: 09/15/16 11:53 Dose: 2 mg Ondansetron HCl (Zofran) 4 mg IV Q8H PRN PRN Reason: N/V unrelieved by Reglan Last Admin: 09/13/16 06:17 Dose: 4 mg Vancomycin HCl (Vancomycin Pharmacy To Dose) 1 each IV PKCONSULT [facility] PRN Reason: Protocol Physical Examination - Physical exam Narrative exam: Significant orthopedic examination reveals moderate swelling with drainage from the first webspace there is some overlying erythema to the dorsum. The skin is warm to touch pulses intact capillary refill sluggish Eyes: PERRL ENT: Positive: clear oral mucosa Respiratory effort: normal Respiratory: bilateral: CTA Rhythm: regular Heart Sounds: Positive: S1 & S2 General gastrointestinal: Positive: soft, non-tender, non-distended, normal bowel sounds Integumentary: clear, warm, dry Neurologic: Positive: CNII-XII intact, moves all extremities, gait normal. Negative: focal deficits Assessment and Plan Infection left forefoot with a history of diabetes one will want to rule out arterial insufficiency prior to debridement and irrigation. We will go ahead and get a arterial Doppler study today and scheduled the patient for surgery tomorrow.
[2016-09-16] MEDS: VANCOMYCIN/NS 1 GM/250 ML 1 GM/250 ML BAG IV SCH ×3 (00:48→16:00)
[2016-09-16] MEDS: NACL 0.9% 1000 ML 1,000 ML IV SCH ×2 (04:11→12:05)
[2016-09-16] MEDS: ZOSYN/NS 4.5GM/100ML 4.5 GM/100 ML VIAL IV SCH ×3 (05:45→21:55)
[2016-09-16] MEDS: NOVOLOG SUB-Q SCH ×4 (08:15→21:56)
--- NOTE | 2016-09-16 08:46 | Progress Note ---
Assessment and Plan Assessment and plan: This is a 46-year-old male who presents to the emergency department with a three-day history of progressive worsening left foot pain and suspected infection. This occurred after the patient stepped on a nail about 8 days ago. It is red and warm to touch and he says that the bottom of the foot is whitish yellow with some discharge of pus. He is a diabetic, insulin-dependent , and says he has been compliant with his medications up until this morning. He has been taking ibuprofen for pain without any relief. He also was able to obtain some amoxicillin from a friend and has been taking 1-2 days worth of that antibiotics. He complains of a subjective fever but has not checked his temperature at home. He does not have a primary care doctor and eventually get some of his medications through his taoism. No recent travel or sick contacts at home. - Patient Problems Severe Sepsis now afebrile secondary to diabetic foot infection, , continue abx, repeat lactate is normal, cultures reviewed no growth. Cellulitis and abscess of foot xray of left foot shows possible punctate foreign body, cw IV abx, ID input appreciated, ortho input appreciated, to OR today, await surgical cultures. Hyperglycemic hyperosmolar nonketotic state Blood sugar improved. Patient states he has not taken insulin for a while due to lack of funds. But was only on Insulin. continue on NPH 70/30 at 18 units BID with sliding scale. received diabetic education, and NUTRITION CONSULT. I have educated patient on need to be complaint with medications . Metabolic acidosis: resolved with rx of HHNK . Uncontrolled diabetes mellitus continue insulins, DM diet. I have advised patient to have a repeat renal function test in a week from discharge, due to ACEI addition. also yearly podiatry and opthalmology exams. Hypokalemia repleted . Plan of care discussed in detail with patient via staff home therapy rn. History Interval history: left foot pain is improved, achy in nature, 3/10, fevers have now resolved, foot is still red and swollen Hospitalist Physical - Physical exam Narrative exam: VITAL SIGNS: Reviewed. GENERAL: The patient appeared well nourished and normally developed. Vital signs as documented. HEAD: No signs of head trauma. EYES: Pupils are equal. Extraocular motions intact. EARS: Hearing grossly intact. MOUTH: Oropharynx is normal. NECK: No adenopathy, no JVD. CHEST: Chest with clear breath sounds bilaterally. No wheezes, rales, or rhonchi. CARDIAC: Regular rate and rhythm. S1 and S2, without murmurs, gallops, or rubs. VASCULAR: Left foot Edema. Peripheral pulses normal and equal in all extremities. ABDOMEN: Soft, without detectable tenderness. No sign of distention. No rebound or guarding, and no masses palpated. Bowel Sounds normal. MUSCULOSKELETAL: Good range of motion of all major joints. Extremities without clubbing, cyanosis. left foot edema. NEUROLOGIC EXAM: Alert and oriented x 3. No focal sensory or strength deficits. Speech normal. Follows commands. PSYCHIATRIC: Mood normal. SKIN: left foot is swollen and erythematous, purlent drainage between 1st and 2nd toe, tender, no surrounding induration - Constitutional Vitals: Temp Pulse Resp BP Pulse Ox 99.0 F 80 20 130/77 95 09/16/16 00:00 09/16/16 00:00 09/16/16 08:00 09/16/16 00:00 09/16/16 00:00 General appearance: Present: mild distress Results - Labs CBC & Chem 7: 09/15/16 07:40 09/15/16 07:40 Labs: Laboratory Last Values WBC 11.2 K/mm3 (4.5-11.0) H 09/15/16 07:40 RBC 3.31 M/mm3 (3.65-5.03) L 09/15/16 07:40 Hgb 11.0 gm/dl (11.8-15.2) L 09/15/16 07:40 Hct 32.3 % (35.5-45.6) L 09/15/16 07:40 MCV 98 fl (84-94) H 09/15/16 07:40 MCH 33 pg (28-32) H 09/15/16 07:40 MCHC 34 % (32-34) 09/15/16 07:40 RDW 15.5 % (13.2-15.2) H 09/15/16 07:40 Plt Count 299 K/mm3 (140-440) 09/15/16 07:40 Lymph % (Auto) 14.2 % (13.4-35.0) 09/13/16 04:38 [place] % (Auto) 9.6 % (0.0-7.3) H 09/13/16 04:38 Eos % (Auto) 1.5 % (0.0-4.3) 09/13/16 04:38 Baso % (Auto) 0.2 % (0.0-1.8) 09/13/16 04:38 Lymph # 1.8 K/mm3 (1.2-5.4) 09/13/16 04:38 [place] # 1.2 K/mm3 (0.0-0.8) H 09/13/16 04:38 Eos # 0.2 K/mm3 (0.0-0.4) 09/13/16 04:38 Baso # 0.0 K/mm3 (0.0-0.1) 09/13/16 04:38 Seg Neutrophils % 74.5 % (40.0-70.0) H 09/13/16 04:38 Seg Neutrophils # 9.7 K/mm3 (1.8-7.7) H 09/13/16 04:38 VBG pH 7.381 (7.320-7.420) 09/12/16 07:49 Sodium 139 mmol/L (137-145) 09/15/16 07:40 Potassium 3.3 mmol/L (3.6-5.0) L 09/15/16 07:40 Chloride 101.5 mmol/L (98-107) 09/15/16 07:40 Carbon Dioxide 22 mmol/L (22-30) 09/15/16 07:40 Anion Gap 19 mmol/L 09/15/16 07:40 BUN 8 mg/dL (9-20) L 09/15/16 07:40 Creatinine 0.5 mg/dL (0.8-1.5) L 09/15/16 07:40 Estimated GFR > 60 ml/min 09/15/16 07:40 BUN/Creatinine Ratio 16.00 % 09/15/16 07:40 Glucose 103 mg/dL (75-100) H 09/15/16 07:40 POC Glucose 285 (70-105) H 09/16/16 06:14 Hemoglobin A1c 15.1 % (4-6) H 09/12/16 10:18 Lactic Acid 1.50 mmol/L (0.7-2.0) 09/13/16 14:38 Calcium 8.1 mg/dL (8.4-10.2) L 09/15/16 07:40 Phosphorus 3.30 mg/dL (2.5-4.5) 09/12/16 10:18 Magnesium 1.80 mg/dL (1.7-2.3) 09/12/16 10:18 Triglycerides 146 mg/dL (2-149) 09/12/16 10:18 Cholesterol 124 mg/dL (50-199) 09/12/16 10:18 LDL Cholesterol Direct 62 mg/dL (50-130) 09/12/16 10:18 HDL Cholesterol 33 mg/dL (40-59) L 09/12/16 10:18 Cholesterol/HDL Ratio 3.75 % 09/12/16 10:18 Urine Color Yellow (Yellow) 09/12/16 09:03 Urine Turbidity Clear (Clear) 09/12/16 09:03 Urine pH 6.0 (5.0-7.0) 09/12/16 09:03 Ur Specific [place] 1.028 (1.003-1.030) 09/12/16 09:03 Urine Protein <15 mg/dl mg/dL (Negative) 09/12/16 09:03 Urine Glucose (UA) >=500 mg/dL (Negative) 09/12/16 09:03 Urine Ketones Neg mg/dL (Negative) 09/12/16 09:03 Urine Blood Neg (Negative) 09/12/16 09:03 Urine Nitrite Neg (Negative) 09/12/16 09:03 Urine Bilirubin Neg (Negative) 09/12/16 09:03 Urine Urobilinogen < 2.0 mg/dL (<2.0) 09/12/16 09:03 Ur Leukocyte Esterase Neg (Negative) 09/12/16 09:03 Urine WBC (Auto) 1.0 /HPF (0.0-6.0) 09/12/16 09:03 Urine RBC (Auto) 4.0 /HPF (0.0-6.0) 09/12/16 09:03 U Epithel Cells (Auto) < 1.0 /HPF (0-13.0) 09/12/16 09:03 Urine Mucus Few /HPF 09/12/16 09:03 Vancomycin Trough 4.5 ug/mL (5.0-20.0) L 09/14/16 11:06
[2016-09-16] MEDS: LOVENOX SUB-Q SCH (10:00)
[2016-09-16] MEDS: ZESTRIL PO SCH (10:00)
[2016-09-16] MEDS ORDERED: XYLOCAINE MPF 2% ONE (11:34)
[2016-09-16] MEDS ORDERED: DIPRIVAN 10 MG/ML IV ONE (11:34)
[2016-09-16] MEDS ORDERED: SUBLIMAZE ONE (11:34)
--- NOTE | 2016-09-16 11:55 | Anesthesia Day of Surgery ---
Anesthesia Day of Surgery - Day of Surgery Patient Examined: Yes Patient H&P Reviewed: Yes Patient is NPO: Yes
--- NOTE | 2016-09-16 11:58 | Anesthesia Consultation ---
Anesthesia Consult and Med Hx Date of service: 09/16/16 - Airway Anesthetic Teeth Evaluation: Poor ROM Head & Neck: Adequate Mental/Hyoid Distance: Adequate Mallampati Class: Class II Intubation Access Assessment: Probably Good - Pulmonary Exam CTA: Yes - Cardiac Exam Cardiac Exam: RRR - Pre-Operative Health Status ASA Pre-Surgery Classification: ASA3 Proposed Anesthetic Plan: General - Pulmonary Hx Smoking: Yes Hx Asthma: No COPD: No Hx Pneumonia: No - Cardiovascular System Hx Hypertension: Yes (on on med, dx couple months ago) Hx Heart Attack/AMI: No - Central Nervous System Hx Seizures: No CVA: No - Endocrine Hx Renal Disease: No Hx End Stage Renal Disease: No Hx Insulin Dependent Diabetes: Yes (uncontrolled) - Other Systems Hx Alcohol Use: Yes (heavy drinker, quit 2 months ago) Hx Substance Use: Yes (methamphetamine, quit 5 months) Hx Cancer: No - Additional Comments Anesthesia Medical History Comments: NAC
[2016-09-16] MEDS ORDERED: VERSED IV NR (12:00)
[2016-09-16] MEDS ORDERED: PEPCID PO NR (12:00)
[2016-09-16] MEDS ORDERED: ePHEDrine SULFATE ONE (12:51)
[2016-09-16] MEDS ORDERED: ZOFRAN ONE (12:57)
[2016-09-16] MEDS ORDERED: NACL 0.9% IR ONE (13:00)
[2016-09-16] MEDS ORDERED: MARCAINE 0.5% INFILTRATI ONE (13:00)
[2016-09-16] MEDS ORDERED: MARCAINE 0.5% 30 ML INFILTRATI ONE (13:06)
[2016-09-16] MEDS ORDERED: MORPHINE IV PRN (13:34)
--- NOTE | 2016-09-16 13:43 | Procedure Note ---
Date of procedure: 09/16/16 Pre-op diagnosis: infected left forefoot Post-op diagnosis: same Procedure: Incision and drainage left forefoot Indications The 46-year-old male who stepped on a nail approximately 1 week prior patient has a history of diabetes came in complaining of increasing pain and drainage Procedure Patient was brought to the OR and placed in the OR table in supine position following induction and ablation by anesthesia the patient's left lower extremity was prepped and draped in the usual sterile manner timeout procedure was done to identify the proper or site. The patient was noted to have 2 small punctate lesions on the lateral surface of his forefoot beneath the first metatarsal. There was some pus noted from this area there is also a communication dorsally at the first webspace and this area was incised there was some necrotic tissue seen as was debrided next the wound was copiously irrigated and was packed with iodoform gauze routine postoperative dressings were applied patient tolerated procedure complications Anesthesia: GETA Surgeon: RONALD GÓMEZ Estimated blood loss: minimal Pathology: list Specimen disposition: to lab (deep cultures left forefoot) Condition: stable Disposition: PACU
[2016-09-16] MEDS ORDERED: NORMODYNE IV ONE (13:49)
[2016-09-16] MEDS ORDERED: DILAUDID IV PRN (13:50)
[2016-09-16] MEDS ORDERED: NORMODYNE IV PRN (13:50)
--- NOTE | 2016-09-16 13:50 | Post Anesthesia Evaluation ---
- Post Anesthesia Evaluation Patient Participated: Yes Airway Patent: Yes Stable Respiratory Function: Yes Nausea/Vomiting: No Temp > 96.8F: Yes Pain Manageable: Yes Adequeate Hydration: Yes Anesthesia Complications: No Block Receding Appropriately: Not Applicable Patient on Ventilator: No
[2016-09-16] MEDS ORDERED: SODIUM CHLORIDE FLUSH SYRINGE 10 ML IV NR (14:00)
[2016-09-16] MEDS: MORPHINE IV PRN (17:58)
[2016-09-17] MEDS: VANCOMYCIN/NS 1 GM/250 ML 1 GM/250 ML BAG IV SCH ×2 (00:30→08:46)
[2016-09-17] MEDS: ZOSYN/NS 4.5GM/100ML 4.5 GM/100 ML VIAL IV SCH ×3 (07:07→21:28)
[2016-09-17] MEDS: MORPHINE IV PRN ×2 (07:07→17:57)
--- NOTE | 2016-09-17 08:18 | Progress Note ---
Assessment and Plan Assessment and plan: This is a 46-year-old male who presents to the emergency department with a three-day history of progressive worsening left foot pain and suspected infection. This occurred after the patient stepped on a nail about 8 days ago. It is red and warm to touch and he says that the bottom of the foot is whitish yellow with some discharge of pus. He is a diabetic, insulin-dependent , and says he has been compliant with his medications up until this morning. He has been taking ibuprofen for pain without any relief. He also was able to obtain some amoxicillin from a friend and has been taking 1-2 days worth of that antibiotics. He complains of a subjective fever but has not checked his temperature at home. He does not have a primary care doctor and eventually get some of his medications through his oriental orthodox. No recent travel or sick contacts at home. 09/16/16 Status post incision and drainage and debridement of necrotic tissue to left forefoot - Patient Problems Severe Sepsis now afebrile secondary to diabetic foot infection, , continue abx, repeat lactate is normal, cultures reviewed no growth. improving Cellulitis and abscess of foot , cw IV abx, ID input appreciated, ortho input appreciated, status post I&D 09/16 , await surgical cultures. Hyperglycemic hyperosmolar nonketotic state/Uncontrolled diabetes mellitus Glucose still uncontrolled, increase 70/30 dose, continue SSI -continue insulins, DM diet. I have advised patient to have a repeat renal function test in a week from discharge, due to ACEI addition. also yearly podiatry and opthalmology exams. . Metabolic acidosis: resolved with rx of HHNK . Uncontrolled HTN will increase lisinopril dose today Hypokalemia repleted . Plan of care discussed in detail with patient via staff electronic warfare officer. History Interval history: left foot pain is improved, achy in nature, 2/10, fevers have now resolved, foot is still red and swollen Hospitalist Physical - Physical exam Narrative exam: VITAL SIGNS: Reviewed. GENERAL: The patient appeared well nourished and normally developed. Vital signs as documented. HEAD: No signs of head trauma. EYES: Pupils are equal. Extraocular motions intact. EARS: Hearing grossly intact. MOUTH: Oropharynx is normal. NECK: No adenopathy, no JVD. CHEST: Chest with clear breath sounds bilaterally. No wheezes, rales, or rhonchi. CARDIAC: Regular rate and rhythm. S1 and S2, without murmurs, gallops, or rubs. VASCULAR: Left foot Edema. good pulses throught ABDOMEN: Soft, without detectable tenderness. No sign of distention. No rebound or guarding, and no masses palpated. Bowel Sounds normal. MUSCULOSKELETAL: Good range of motion of all major joints. Extremities without clubbing, cyanosis. left foot edema, covered in dressing, dressing not removed NEUROLOGIC EXAM: Alert and oriented x 3. No focal sensory or strength deficits. Speech normal. Follows commands. PSYCHIATRIC: Mood normal. SKIN: left foot is swollen and erythematous, covered in dressing, dressing was not removed - Constitutional Vitals: Temp Pulse Resp BP Pulse Ox 98.9 F 80 20 161/85 98 09/16/16 23:56 09/16/16 23:56 09/17/16 07:07 09/16/16 23:56 09/16/16 23:56 General appearance: Present: mild distress Results - Labs CBC & Chem 7: 09/15/16 07:40 09/15/16 07:40 Labs: Laboratory Last Values WBC 11.2 K/mm3 (4.5-11.0) H 09/15/16 07:40 RBC 3.31 M/mm3 (3.65-5.03) L 09/15/16 07:40 Hgb 11.0 gm/dl (11.8-15.2) L 09/15/16 07:40 Hct 32.3 % (35.5-45.6) L 09/15/16 07:40 MCV 98 fl (84-94) H 09/15/16 07:40 MCH 33 pg (28-32) H 09/15/16 07:40 MCHC 34 % (32-34) 09/15/16 07:40 RDW 15.5 % (13.2-15.2) H 09/15/16 07:40 Plt Count 299 K/mm3 (140-440) 09/15/16 07:40 Lymph % (Auto) 14.2 % (13.4-35.0) 09/13/16 04:38 [place] % (Auto) 9.6 % (0.0-7.3) H 09/13/16 04:38 Eos % (Auto) 1.5 % (0.0-4.3) 09/13/16 04:38 Baso % (Auto) 0.2 % (0.0-1.8) 09/13/16 04:38 Lymph # 1.8 K/mm3 (1.2-5.4) 09/13/16 04:38 [place] # 1.2 K/mm3 (0.0-0.8) H 09/13/16 04:38 Eos # 0.2 K/mm3 (0.0-0.4) 09/13/16 04:38 Baso # 0.0 K/mm3 (0.0-0.1) 09/13/16 04:38 Seg Neutrophils % 74.5 % (40.0-70.0) H 09/13/16 04:38 Seg Neutrophils # 9.7 K/mm3 (1.8-7.7) H 09/13/16 04:38 VBG pH 7.381 (7.320-7.420) 09/12/16 07:49 Sodium 139 mmol/L (137-145) 09/15/16 07:40 Potassium 3.3 mmol/L (3.6-5.0) L 09/15/16 07:40 Chloride 101.5 mmol/L (98-107) 09/15/16 07:40 Carbon Dioxide 22 mmol/L (22-30) 09/15/16 07:40 Anion Gap 19 mmol/L 09/15/16 07:40 BUN 8 mg/dL (9-20) L 09/15/16 07:40 Creatinine 0.5 mg/dL (0.8-1.5) L 09/15/16 07:40 Estimated GFR > 60 ml/min 09/15/16 07:40 BUN/Creatinine Ratio 16.00 % 09/15/16 07:40 Glucose 103 mg/dL (75-100) H 09/15/16 07:40 POC Glucose 212 (70-105) H 09/17/16 06:17 Hemoglobin A1c 15.1 % (4-6) H 09/12/16 10:18 Lactic Acid 1.50 mmol/L (0.7-2.0) 09/13/16 14:38 Calcium 8.1 mg/dL (8.4-10.2) L 09/15/16 07:40 Phosphorus 3.30 mg/dL (2.5-4.5) 09/12/16 10:18 Magnesium 1.80 mg/dL (1.7-2.3) 09/12/16 10:18 Triglycerides 146 mg/dL (2-149) 09/12/16 10:18 Cholesterol 124 mg/dL (50-199) 09/12/16 10:18 LDL Cholesterol Direct 62 mg/dL (50-130) 09/12/16 10:18 HDL Cholesterol 33 mg/dL (40-59) L 09/12/16 10:18 Cholesterol/HDL Ratio 3.75 % 09/12/16 10:18 Urine Color Yellow (Yellow) 09/12/16 09:03 Urine Turbidity Clear (Clear) 09/12/16 09:03 Urine pH 6.0 (5.0-7.0) 09/12/16 09:03 Ur Specific [place] 1.028 (1.003-1.030) 09/12/16 09:03 Urine Protein <15 mg/dl mg/dL (Negative) 09/12/16 09:03 Urine Glucose (UA) >=500 mg/dL (Negative) 09/12/16 09:03 Urine Ketones Neg mg/dL (Negative) 09/12/16 09:03 Urine Blood Neg (Negative) 09/12/16 09:03 Urine Nitrite Neg (Negative) 09/12/16 09:03 Urine Bilirubin Neg (Negative) 09/12/16 09:03 Urine Urobilinogen < 2.0 mg/dL (<2.0) 09/12/16 09:03 Ur Leukocyte Esterase Neg (Negative) 09/12/16 09:03 Urine WBC (Auto) 1.0 /HPF (0.0-6.0) 09/12/16 09:03 Urine RBC (Auto) 4.0 /HPF (0.0-6.0) 09/12/16 09:03 U Epithel Cells (Auto) < 1.0 /HPF (0-13.0) 09/12/16 09:03 Urine Mucus Few /HPF 09/12/16 09:03 Vancomycin Trough 5.4 ug/mL (5.0-20.0) 09/16/16 09:30
[2016-09-17] MEDS ORDERED: ZESTRIL PO SCH (08:23)
[2016-09-17] MEDS: NOVOLOG SUB-Q SCH ×4 (08:26→21:32)
[2016-09-17] MEDS: ZESTRIL PO SCH (09:56)
[2016-09-17] MEDS: LOVENOX SUB-Q SCH (09:57)
[2016-09-17] MEDS: NACL 0.9% 1000 ML 1,000 ML IV SCH (09:57)
--- NOTE | 2016-09-17 10:13 | Progress Note ---
Assessment and Plan - Patient Problems (1) Cellulitis and abscess of foot Current Visit: Yes Status: Acute Plan to address problem: 1. Patient is s/p I&D of left foot. 2. Anticipate isolation of Strep species. Augmentin 875mg PO q12h or Levaquin (not Cipro) 750mg PO daily are expected oral options for this patient to complete ~ 3 weeks of therapy (finish October 07, 2016). 3. Good glycemic control and aggressive local wound care. 4. Consider repeating left foot xray to ensure that foreign object has been retrieved. 5. I discussed this plan in detail with the patient. Subjective Date of service: 09/17/16 Interval history: Patient had I&D of left foot. Surgical cultures sent. Remains afebrile. Objective - Constitutional Vitals: Vital Signs Temp Pulse Resp BP Pulse Ox 98.2 F 73 20 153/87 98 09/17/16 07:00 09/17/16 07:00 09/17/16 07:07 09/17/16 09:56 09/17/16 07:00 Temperature -Last 24 Hours Temperature 98.2 F Temperature 98.9 F Temperature 97.7 F Temperature 97.5 F Temperature 98.9 F Temperature 98.4 F Temperature 99.0 F General appearance: Present: no acute distress - Respiratory Respiratory effort: normal - Cardiovascular Rhythm: regular Extremity abnormal: other (left foot with decreased swelling, post-surgical changes on plantar aspect) - Gastrointestinal General gastrointestinal: Present: non-distended - Integumentary Integumentary: no rash - Labs CBC & Chem 7: 09/15/16 07:40 09/15/16 07:40 Labs: Abnormal lab results 09/16/16 09/16/16 09/16/16 Range/Units 11:50 13:36 17:07 POC Glucose 347 H 203 H 351 H (70-105) 09/16/16 09/17/16 Range/Units 21:19 06:17 POC Glucose 257 H 212 H (70-105) Microbiology 09/12/16 07:49 Peripheral/Venous Blood Culture - Final NO GROWTH AFTER 5 DAYS 09/16/16 Unknown Foot - Left Surgical Culture - Preliminary GPC pairs 09/12/16 08:51 Peripheral/Venous Blood Culture - Preliminary NO GROWTH AFTER 4 DAYS 09/15/16 Unknown Foot - Left Wound Culture - Preliminary GPC pairs Active Medications Al Hydrox/Mg Hydrox/Simethicone (Alum-Mag Hydrox-Simeth [phone]/5ml) 30 ml PO Q4H PRN PRN Reason: Indigestion Bisacodyl (Dulcolax) 10 mg [place] QDAY PRN PRN Reason: constipation unrelieved by MOM Dextrose (D50w (25gm)) 50 ml IV PRN PRN PRN Reason: Hypoglycemia Enoxaparin Sodium (Lovenox) 40 mg SUB-Q QDAY@1000 JARRED Last Admin: 09/17/16 09:57 Dose: 40 mg Piperacillin Sod/Tazobactam Sod (Zosyn/Ns 4.5gm/100ml) 4.5 gm in 100 mls @ 200 mls/hr IV Q8HR JARRED PRN Reason: Protocol Last Admin: 09/17/16 07:07 Dose: 200 mls/hr Sodium Chloride (Nacl 0.9% 1000 Ml) 1,000 mls @ 150 mls/hr IV DIRECT JARRED Last Admin: 09/17/16 09:57 Dose: 150 mls/hr Vancomycin HCl 1,500 mg/ (Sodium Chloride) 530 mls @ 333.333 mls/hr IV Q8HR JARRED Insulin Aspart (Novolog) 0 units SUB-Q ACHS JARRED PRN Reason: Protocol Last Admin: 09/17/16 08:26 Dose: 4 units Insulin Human Isoph/Insulin Regular (Novolin 70/30) 26 unit SUB-Q BIDDIAB JARRED Labetalol HCl (Normodyne) 10 mg IV Q10MIN PRN PRN Reason: Hypertension Stop: 09/17/16 13:51 Last Admin: 09/16/16 13:45 Dose: 10 mg Lisinopril (Zestril) 40 mg PO QDAY [facility] Last Admin: 09/17/16 09:56 Dose: 40 mg Magnesium Hydroxide (Milk Of Magnesia) 30 ml PO Q4H PRN PRN Reason: Constipation Morphine Sulfate (Morphine) 2 mg IV Q4H PRN PRN Reason: Pain, Moderate (4-6) Last Admin: 09/17/16 07:07 Dose: 2 mg Morphine Sulfate (Morphine) 4 mg IV Q4H PRN PRN Reason: Pain , Severe (7-10) Ondansetron HCl (Zofran) 4 mg IV Q8H PRN PRN Reason: N/V unrelieved by [place] Last Admin: 09/13/16 06:17 Dose: 4 mg Sodium Chloride (Sodium Chloride Flush Syringe 10 Ml) 10 ml IV PRN NR Stop: 09/17/16 13:59 Vancomycin HCl (Vancomycin Pharmacy To Dose) 1 each IV PKCONSULT JARRED PRN Reason: Protocol
--- NOTE | 2016-09-17 12:31 | Progress Note ---
Assessment and Plan Post op day 1 doing ok, awaiting final cultures, continue IVAB's and observation Subjective Date of service: 09/17/16 Interval history: no c/o's noted, wants to go home but explained that we need to know what we're treating before dc to home Objective Vital signs: Vital Signs - 12hr 09/17/16 09/17/16 09/17/16 07:00 07:07 09:56 Temperature 98.2 F Pulse Rate [ 73 Left Dorsalis Pedis] Respiratory 20 20 Rate Blood Pressure 153/87 Blood Pressure 153/87 [Right Arm] O2 Sat by Pulse 98 Oximetry - Labs CBC & BMP: 09/15/16 07:40 09/15/16 07:40 Labs: Abnormal lab results 09/16/16 09/16/16 09/16/16 Range/Units 13:36 17:07 21:19 POC Glucose 203 H 351 H 257 H (70-105) 09/17/16 Range/Units 06:17 POC Glucose 212 H (70-105)
[2016-09-17] MEDS: VANCOMYCIN 1,500 MG in NACL 0.9% 500 ML 500 ML IV SCH ×2 (15:25→22:29)
[2016-09-18] MEDS: ZOSYN/NS 4.5GM/100ML 4.5 GM/100 ML VIAL IV SCH ×2 (06:09→13:49)
[2016-09-18] MEDS: VANCOMYCIN 1,500 MG in NACL 0.9% 500 ML 500 ML IV SCH ×2 (07:09→13:49)
[2016-09-18 07:38] LABS: Basophils % (Auto) 1.2 % (0.0-1.8); Eosinophils % (Auto) 1.8 % (0.0-4.3); Hematocrit 34.2 % (35.5-45.6); Hemoglobin 11.8 gm/dl (11.8-15.2); Mean Corpuscular HGB Conc 34 % (32-34); Mean Corpuscular Hemoglobin 34 pg (28-32); Mean Corpuscular Volume 98 fl (84-94); Platelet Count 415 K/mm3 (140-440); Red Blood Count 3.51 M/mm3 (3.65-5.03); Red Cell Distribution Width 16.2 % (13.2-15.2); White Blood Count 8.9 K/mm3 (4.5-11.0)
[2016-09-18 07:51] LABS: Anion Gap 19 mmol/L; Blood Urea Nitrogen 9 mg/dL (9-20); Calcium 8.7 mg/dL (8.4-10.2); Carbon Dioxide 24 mmol/L (22-30); Chloride 103.3 mmol/L (98-107); Glucose 125 mg/dL (75-100); Potassium 3.3 mmol/L (3.6-5.0); Sodium 143 mmol/L (137-145)
[2016-09-18] MEDS: NOVOLOG SUB-Q SCH ×2 (08:23→12:25)
[2016-09-18 08:50] VITALS: BP 148/80
--- NOTE | 2016-09-18 09:32 | Progress Note ---
Assessment and Plan - Patient Problems (1) Cellulitis and abscess of foot Status: Acute Plan to address problem: 1. MRSA and Enterococcus faecalis isolated from left foot wound culture. 2. Still recommend a total of 3 weeks of antibiotics. However, avoid Levaquin as the MRSA isolate is resistant to this. 3. Recommend Bactrim DS PO q12h or Augmentin 875mg PO q12h. 4. Follow-up with general surgery/ PCP and ID as needed. Patient was given contact information for my office. 5. Blood sugar control. Recent values are much improved. Subjective Date of service: 09/18/16 Interval history: Additional culture data from surgical I&D. Wound with polymicrobial growth. Patient remains stable. Objective - Constitutional Vitals: Vital Signs Temp Pulse Resp BP Pulse Ox 98.5 F 78 18 148/80 98 09/18/16 07:30 09/18/16 07:30 09/18/16 07:30 09/18/16 07:30 09/18/16 07:30 Temperature -Last 24 Hours Temperature 98.5 F Temperature 99.2 F Temperature 98.9 F General appearance: Present: no acute distress - Respiratory Respiratory effort: normal - Cardiovascular Rhythm: regular Extremities: abnormal (little change in left foot intervally) - Integumentary Integumentary: clear - Labs CBC & Chem 7: 09/18/16 06:49 09/18/16 06:49 Labs: Abnormal lab results 09/17/16 09/17/16 09/17/16 Range/Units 11:24 15:08 21:22 RBC (3.65-5.03) M/mm3 Hct (35.5-45.6) % MCV (84-94) fl MCH (28-32) pg RDW (13.2-15.2) % Seg Neutrophils % (40.0-70.0) % Potassium (3.6-5.0) mmol/L Creatinine (0.8-1.5) mg/dL Glucose (75-100) mg/dL POC Glucose 323 H 371 H 115 H (70-105) 09/18/16 09/18/16 Range/Units 06:49 06:49 RBC 3.51 L (3.65-5.03) M/mm3 Hct 34.2 L (35.5-45.6) % MCV 98 H (84-94) fl MCH 34 H (28-32) pg RDW 16.2 H (13.2-15.2) % Seg Neutrophils % 72.6 H (40.0-70.0) % Potassium 3.3 L (3.6-5.0) mmol/L Creatinine 0.6 L (0.8-1.5) mg/dL Glucose 125 H (75-100) mg/dL POC Glucose (70-105) Microbiology 09/15/16 Unknown Foot - Left Wound Culture - Preliminary Staphylococcus Aureus 09/16/16 Unknown Foot - Left Surgical Culture - Preliminary Methicillin Resist S. Aureus Enterococcus Faecalis 09/16/16 Unknown Foot - Left Anaerobic Culture - Preliminary 09/12/16 08:51 Peripheral/Venous Blood Culture - Final NO GROWTH AFTER 5 DAYS 09/12/16 07:49 Peripheral/Venous Blood Culture - Final NO GROWTH AFTER 5 DAYS Active Medications Al Hydrox/Mg Hydrox/Simethicone (Alum-Mag Hydrox-Simeth 413-982-95zf/5ml) 30 ml PO Q4H PRN PRN Reason: Indigestion Bisacodyl (Dulcolax) 10 mg [place] QDAY PRN PRN Reason: constipation unrelieved by MOM Dextrose (D50w (25gm)) 50 ml IV PRN PRN PRN Reason: Hypoglycemia Enoxaparin Sodium (Lovenox) 40 mg SUB-Q QDAY@1000 JARRED Last Admin: 09/17/16 09:57 Dose: 40 mg Piperacillin Sod/Tazobactam Sod (Zosyn/Ns 4.5gm/100ml) 4.5 gm in 100 mls @ 200 mls/hr IV Q8HR JARRED PRN Reason: Protocol Last Admin: 09/18/16 06:09 Dose: 200 mls/hr Sodium Chloride (Nacl 0.9% 1000 Ml) 1,000 mls @ 150 mls/hr IV DIRECT [facility] Last Admin: 09/17/16 09:57 Dose: 150 mls/hr Vancomycin HCl 1,500 mg/ (Sodium Chloride) 530 mls @ 333.333 mls/hr IV Q8HR [facility] Last Admin: 09/18/16 07:09 Dose: 333.333 mls/hr Insulin Aspart (Novolog) 0 units SUB-Q ACHS JARRED PRN Reason: Protocol Last Admin: 09/18/16 08:23 Dose: Not Given Insulin Human Isoph/Insulin Regular (Novolin 70/30) 26 unit SUB-Q BIDDIAB [facility] Last Admin: 09/18/16 08:23 Dose: Not Given Lisinopril (Zestril) 40 mg PO QDAY [facility] Last Admin: 09/17/16 09:56 Dose: 40 mg Magnesium Hydroxide (Milk Of Magnesia) 30 ml PO Q4H PRN PRN Reason: Constipation Morphine Sulfate (Morphine) 2 mg IV Q4H PRN PRN Reason: Pain, Moderate (4-6) Last Admin: 09/17/16 17:57 Dose: 2 mg Morphine Sulfate (Morphine) 4 mg IV Q4H PRN PRN Reason: Pain , Severe (7-10) Ondansetron HCl (Zofran) 4 mg IV Q8H PRN PRN Reason: N/V unrelieved by [place] Last Admin: 09/13/16 06:17 Dose: 4 mg Vancomycin HCl (Vancomycin Pharmacy To Dose) 1 each IV PKCONSULT [facility] PRN Reason: Protocol
[2016-09-18] MEDS: LOVENOX SUB-Q SCH (10:08)
[2016-09-18] MEDS: ZESTRIL PO SCH (10:08)
[2016-09-18] MEDS: MORPHINE IV PRN (10:10)
--- NOTE | 2016-09-18 14:00 | Discharge Summary ---
Providers - Providers Date of Admission: 09/12/16 09:46 Attending physician: HETAL PEREZ MD 09/13/16 13:45 Consult to Wound/ET Nurse [CONS] Routine Reason For Exam: wound eval 09/13/16 13:58 Consult to Physician [CONS] Routine Consulting Provider: YANG YATES Reason For Exam: left diabetic foot infection Place consult to:: DR. YATES Notified:: DR. YATES Phone number called:: [phone] Was contact made?: No Time called:: 14:41 Comment:: LEFT MESSAGE ON CELL FOR DR. Gilbert 09/14/16 08:08 Consult to Physician [CONS] Routine Consulting Provider: RONALD WINKLER Reason For Exam: diabetic foot infection, left foot Place consult to:: dr. winkler Notified:: cell phone Phone number called:: [phone] Was contact made?: Yes If yes, spoke with:: DR. winkler Time called:: 09:08 09/15/16 09:24 Consult to Wound/ET Nurse [CONS] Routine Reason For Exam: wound eval left foot 09/16/16 13:36 Physical Therapy Evaluation and Treat [CONS] Routine Comment: Reason For Exam: post op Mode of Transport?: Wheelchair Weight bearing status?: Partial wt bearing If so list: Walker Primary care physician: UX INFORMATION ARCHITECT Hospitalization Condition: Stable Procedures: 09/16/16 Status post incision and drainage and debridement of necrotic tissue to left forefoot Hospital course: This is a 46-year-old male who presents to the emergency department with a three-day history of progressive worsening left foot pain and suspected infection. The symptoms began 8 days of the patient had stepped on a nail. He was started on IV antibiotics, he was seen in conjunction with orthopedic surgery who took him to the OR where he had incision and drainage and debridement of necrotic tissue off the left foot abscess. He was also seen by infectious disease who recommended a course of oral antibiotics for treatment of MRSA and enterococcus which is what was grown by his wound cultures. Patient was counseled about nonadherence to medications, he verbalizes understanding. He was started on insulin for treatment of uncontrolled diabetes , will also put on appropriate medications for controlled hypertension, low potassium levels were noted in his blood which were repleted. Patient was discharged in improved condition, he was given a referral for home wound care. - Patient Problems Severe gram-positive Sepsis Cellulitis and abscess of foot Hyperglycemic hyperosmolar nonketotic state/Uncontrolled diabetes mellitus . Metabolic acidosis: . Uncontrolled HTN Hypokalemia Disposition: DC/TX HOME UNDER HOME HEALTH Time spent for discharge: 35 minutes Core Measure Documentation - Palliative Care Palliative Care/ Comfort Measures: Not Applicable - Core Measures Any of the following diagnoses?: none Exam - Physical Exam Narrative exam: VITAL SIGNS: Reviewed. GENERAL: The patient appeared well nourished and normally developed. Vital signs as documented. HEAD: No signs of head trauma. EYES: Pupils are equal. Extraocular motions intact. EARS: Hearing grossly intact. MOUTH: Oropharynx is normal. NECK: No adenopathy, no JVD. CHEST: Chest with clear breath sounds bilaterally. No wheezes, rales, or rhonchi. CARDIAC: Regular rate and rhythm. S1 and S2, without murmurs, gallops, or rubs. VASCULAR: Left foot Edema. good pulses throught ABDOMEN: Soft, without detectable tenderness. No sign of distention. No rebound or guarding, and no masses palpated. Bowel Sounds normal. MUSCULOSKELETAL: Good range of motion of all major joints. Extremities without clubbing, cyanosis. left foot edema, covered in dressing, dressing not removed NEUROLOGIC EXAM: Alert and oriented x 3. No focal sensory or strength deficits. Speech normal. Follows commands. PSYCHIATRIC: Mood normal. SKIN: left foot is swollen and erythematous, covered in dressing, dressing was not removed - Constitutional Vitals: Temp Pulse Resp BP Pulse Ox 98.5 F 78 18 148/80 98 09/18/16 07:30 09/18/16 07:30 09/18/16 07:30 09/18/16 10:08 09/18/16 07:30 Plan Follow up with: JEANETTE JIMENEZ MD [Primary Care Provider] - 7 Days YANG YATES MD [Staff Physician] - 7 Days RONALD WINKLER MD [Staff Physician] - 7 Days [facility] [Outside] - 7 Days Prescriptions: Amoxicillin/K Clav Tab [Augmentin 875 mg] 1 tab PO Q12HR #30 tab Insulin NPH/Regular [NovoLIN 70/30] 30 unit SUB-Q BIDDIAB #1 vial Lisinopril [Zestril TAB] 40 mg PO QDAY #30 tablet Sulfamethoxazole/Trimethoprim [Bactrim DS TAB] 1 each PO BID #30 tablet
--- NOTE | 2016-09-18 15:49 | Vascular Lab Report ---
LOWER EXTREMITY ARTERIAL DUPLEX: REASON FOR EXAM: Diabetic with left foot infection. COMMENTS ON THE RIGHT: Biphasic and triphasic waveforms are seen proximally. Triphasic waveforms are seen distally. No significant velocity gradients are identified. No focal significant plaque is identified. Findings are consistent with normal perfusion. Findings are consistent with the ability to heal distal wounds. COMMENTS ON THE LEFT: Biphasic and triphasic waveforms are seen proximally. Monophasic waveforms are seen in the popliteal artery. Monophasic waveforms are seen distally. No significant velocity gradients are identified. No focal significant plaque is identified. Findings are consistent with abnormal perfusion with monophasic distal waveforms. Findings are possibly compromised ability to heal distal wounds. IMPRESSION: RIGHT: Essentially normal arterial flow. LEFT:Although there is no significant decline in velocities, waveforms in the popliteal and infrapopliteal vasculature demonstrate monophasic waveforms. This can be associated with stenoses or loss of resistance secondary to perfusion to the wound. Correlate with pulse exam. Consider RITIKA to evaluate the left lower extremity or other testing procedure if indicated.
== END 2016-09-18 15:34 | disposition home health service (06) | DRG 853 ==
LOC: ED 07:23 → CC1 09:46 → 3A 09-13 13:02
PROVIDERS: ADMIT Internal Medicine; ATTEND Internal Medicine
PROC: 0J9R0ZZ Drainage of Left Foot Subcutaneous Tissue and Fascia, Open Approach (ICD-10-PCS; principal; 2016-09-16)
DX: A41.9 Sepsis, unspecified organism (principal); E11.01 Type 2 diabetes mellitus with hyperosmolarity with coma; L03.119 Cellulitis of unspecified part of limb; L02.619 Cutaneous abscess of unspecified foot; R65.20 Severe sepsis without septic shock; E11.65 Type 2 diabetes mellitus with hyperglycemia; E87.6 Hypokalemia; Z87.891 Personal history of nicotine dependence; I10 Essential (primary) hypertension; Z72.89 Other problems related to lifestyle; F15.90 Other stimulant use, unspecified, uncomplicated; E11.628 Type 2 diabetes mellitus with other skin complications
CPT/HCPCS: 36415; 80048; 80061; 80202; 81001; 82140; 82805; 82962; 83036; 83735; 84100; 85025; 85027; 86403; 87040; 87075; 87076; 87116; 87186; 90471; 90686; 90714; 93925; 96361; 96365; 96366; 96367; 96368; 96375; A4217; J1170; J1650; J1815; J1818; J2250; J2270; J2405; J2543; J2704; J3010; J3370; J7030; J7040; J7050